=== PATIENT | female | born 1940 | race Caucasian/White ===

== ENCOUNTER 2017-08-11 18:58 | Emergency (ER) | payer OTHER ==
[2017-08-11] MEDS ORDERED: TETANUS & DIPHTHERIA TOX,ADULT 0.5 ML VIAL ONE (20:22)
[2017-08-11] MEDS ORDERED: DERMABOND SKIN ADHESIVE TOP ONE (20:22)
--- NOTE | 2017-08-11 20:25 | RAD REPORT ---
EXAM DESCRIPTION: RAD - Hand Left 3 View - 08/11/2017 8:18 pm CLINICAL HISTORY: PAIN Laceration COMPARISON: No comparisons FINDINGS: Diffuse osteopenia noted. Arthritic changes are present throughout the wrist and hand. No fracture or dislocation. No radiopaque foreign body.
[2017-08-11] MEDS ORDERED: LIDOCAINE 1% MPF 5 ML VIAL ONE (20:39)
--- NOTE | 2017-08-11 21:02 | ER ---
Nurse's Notes [facility] Name: Ronnie Anand Age: 77 yrs Sex: Female : 1940 Arrival Date: 08/11/2017 Time: 19:01 Bed 23 Private MD: Out, [facility] Diagnosis: Laceration without foreign body of left hand Presentation: 08/11 19:08 Presenting complaint: Patient states: pt states that she walked up to screen door to tl3 outside she fell onto the corner of a piece of lattice, skin tear to left dorsal surface of the left hand. Transition of care: patient was not received from another setting of care. Onset of symptoms was August 11, 2017. Risk Assessment: Do you want to hurt yourself or someone else? Patient reports no desire to harm self or others. Initial Sepsis Screen: Does the patient meet any 2 criteria? No. Patient's initial sepsis screen is negative. Does the patient have a suspected source of infection? No. Patient's initial sepsis screen is negative. Care prior to arrival: dressing applied. 19:08 Method Of Arrival: Ambulatory tl3 19:08 Acuity: KE 4 tl3 Triage Assessment: 19:13 General: Appears in no apparent distress. comfortable, well groomed, well developed, tl3 well nourished, Behavior is calm, cooperative, appropriate for age. Pain: Complains of pain in left hand Pain currently is 3 out of 10 on a pain scale. Historical: - Home Meds: 19:13 carvedilol 25 mg oral tab [Active]; tl3 - PSHx: 19:13 Appendectomy; OVARY REMOVED; ; Cholecystectomy; tl3 - Immunization history:: Adult Immunizations not up to date. - Social history:: Smoking status: Patient/guardian denies using tobacco, never smoked. - Ebola Screening: : Patient denies travel to an Ebola-affected area in the 21 days before illness onset. Screenin:27 Abuse screen: Denies threats or abuse. Nutritional screening: No deficits noted. mb3 Tuberculosis screening: No symptoms or risk factors identified. 21:30 Fall Risk None identified. mb3 Assessment: 19:30 General: Appears in no apparent distress. comfortable, Behavior is calm, cooperative, mb3 appropriate for age. Pain: Complains of pain in left hand. Neuro: No deficits noted. Cardiovascular: No deficits noted. Respiratory: No deficits noted. GI: No deficits noted. No signs and/or symptoms were reported involving the gastrointestinal system. Injury Description: Laceration sustained to dorsum of left hand is jagged, 0.5 to 2.5 cm long. Vital Signs: 19:13 BP 103 / 74; Pulse 92; Resp 18; Temp 98.5; Pulse Ox 100% ; Weight 59.42 kg; Height 5 tl3 ft. (152.40 cm); 20:32 BP 102 / 63; Pulse 75; Resp 18; Pulse Ox 94% on R/A; mb3 19:13 Body Mass Index 25.58 (59.42 kg, 152.40 cm) tl3 ED Course: 19:01 Patient arrived in ED. sb2 19:02 Out, of Town is Private Physician. sb2 19:10 Triage completed. tl3 19:13 Arm band placed on right wrist. tl3 19:16 Brittany Patton, KIMBERLY is Primary Nurse. tl3 19:21 Tommy Tripathi NP is PHCP. pm1 19:21 Cr Summers MD is Attending Physician. pm1 19:36 Fly Cruz, KIMBERLY is Primary Nurse. mb3 20:15 X-ray completed. Portable x-ray completed in exam room. Patient tolerated procedure la2 well. 20:16 Hand Left 3 View XRAY In Process Unspecified. EDMS 21:32 Patient has correct armband on for positive identification. mb3 21:32 No provider procedures requiring assistance completed. Patient did not have IV access mb3 during this emergency room visit. Administered Medications: 20:24 Drug: Tetanus-Diphtheria Toxoid Adult 0.5 ml {Clinical Appeals Specialist: [employer]. Exp: mb3 10/25/2019. Lot #: [id number]. } Route: IM; Site: right deltoid; 21:26 Follow up: Response: No adverse reaction mb3 20:40 Drug: Lidocaine (1 %) 5 ml Volume: 5 ml; Route: Infiltration; mb3 21:26 Follow up: Response: No adverse reaction mb3 Outcome: 21:02 Discharge ordered by . pm1 21:26 Discharged to home ambulatory, with family. mb3 21:26 Condition: stable 21:26 Discharge instructions given to patient, Instructed on discharge instructions, follow up and referral plans. medication usage, Demonstrated understanding of instructions, follow-up care, medications, Prescriptions given X 1. 21:33 Patient left the ED. mb3 Signatures: Dispatcher [employer] EDMS Tommy Tripathi, DEANDRE AP[employer] W[employer] pm1 Evie Edouard la2 Martha Bundy sb2 Brittany Patton, RN RN tl3 Fly Cruz RN RN mb3 Corrections: (The following items were deleted from the chart) 21:31 21:27 Tuberculosis screening: Possible symptoms: cough for more than 2 weeks, recent mb3 bloody sputum, Risk factors: immunocompromised, Intervention for positive screen: ED Physician notified, mb3
--- NOTE | 2017-08-11 21:02 | EDPHYS ---
Physician Documentation [facility] Name: Ronnie Anand Age: 77 yrs Sex: Female : 1940 Arrival Date: 08/11/2017 Time: 19:01 Bed 23 Private MD: Out, [facility] ED Physician Cr Summers HPI: 08/11 20:00 This 77 yrs old Female presents to ER via Ambulatory with complaints of Fall pm1 Injury - HAND. 20:00 Onset: The symptoms/episode began/occurred just prior to arrival. Patient was opening pm1 her screen door and accidentally fell with her hand against the edge of the screen door. Patient supported her fall with her left hand and it got caught on an edge resulting in a laceration. Patient without any injury to head. No headache, neck pain, LOC. Historical: - Home Meds: 19:13 carvedilol 25 mg oral tab [Active]; tl3 - PSHx: 19:13 Appendectomy; OVARY REMOVED; ; Cholecystectomy; tl3 - Immunization history:: Adult Immunizations not up to date. - Social history:: Smoking status: Patient/guardian denies using tobacco, never smoked. - Ebola Screening: : Patient denies travel to an Ebola-affected area in the 21 days before illness onset. ROS: 20:00 Constitutional: Negative for fever, chills, and weight loss, Eyes: Negative for injury, pm1 pain, redness, and discharge, ENT: Negative for injury, pain, and discharge, Neck: Negative for injury, pain, and swelling, Cardiovascular: Negative for chest pain, palpitations, and edema, Respiratory: Negative for shortness of breath, cough, wheezing, and pleuritic chest pain, Abdomen/GI: Negative for abdominal pain, nausea, vomiting, diarrhea, and constipation, Back: Negative for injury and pain, MS/Extremity: Negative for injury and deformity. 20:00 Neuro: Negative for headache, weakness, numbness, tingling, and seizure. 20:00 Skin: Positive for laceration(s), of the dorsum of left hand. Exam: 20:00 Constitutional: This is a well developed, well nourished patient who is awake, alert, pm1 and in no acute distress. Head/Face: Normocephalic, atraumatic. Neck: Trachea midline, no thyromegaly or masses palpated, and no cervical lymphadenopathy. Supple, full range of motion without nuchal rigidity, or vertebral point tenderness. No Meningismus. Chest/axilla: Normal chest wall appearance and motion. Nontender with no deformity. No lesions are appreciated. Cardiovascular: Regular rate and rhythm with a normal S1 and S2. No gallops, murmurs, or rubs. Normal PMI, no JVD. No pulse deficits. Respiratory: Lungs have equal breath sounds bilaterally, clear to auscultation and percussion. No rales, rhonchi or wheezes noted. No increased work of breathing, no retractions or nasal flaring. Abdomen/GI: Soft, non-tender, with normal bowel sounds. No distension or tympany. No guarding or rebound. No evidence of tenderness throughout. Back: No spinal tenderness. No costovertebral tenderness. Full range of motion. 20:00 MS/ Extremity: Pulses equal, no cyanosis. Neurovascular intact. Full, normal range of motion. 20:00 Skin: injury, laceration(s), the wound is approximately 3 cm(s), with a depth of 0.5 cm(s), of the dorsum of left hand, that can be described as no foreign body, irregular, Laceration with skin tear, T shaped. 20:00 Neuro: Orientation: is normal, Motor: moves all fours, moves all fingers on left hand, Sensation: is normal, no obvious gross deficits. Vital Signs: 19:13 BP 103 / 74; Pulse 92; Resp 18; Temp 98.5; Pulse Ox 100% ; Weight 59.42 kg; Height 5 tl3 ft. (152.40 cm); 20:32 BP 102 / 63; Pulse 75; Resp 18; Pulse Ox 94% on R/A; mb3 19:13 Body Mass Index 25.58 (59.42 kg, 152.40 cm) tl3 Laceration: 21:00 Wound Repair of 3cm ( 1.2in ) subcutaneous laceration to dorsum of left hand. pm1 Irregularly shaped.. Distal neuro/vascular/tendon intact. Anesthesia: Local anesthetic administered with 2 mls of 1% lidocaine. Wound prep: Extensive cleansing with hibiclenz by me, Wound irrigation with saline by mt, Wound explored extensively, Copious irrigation. Skin closed with 6 5-0 Prolene using simple sutures and sterile technique. Dressed with Neosporin, 4x4's. Patient tolerated well. MDM: 19:27 Patient medically screened. pm1 21:00 Data reviewed: vital signs. Data interpreted: Pulse oximetry: on room air is 100 %. pm1 Interpretation: normal. Counseling: I had a detailed discussion with the patient and/or guardian regarding: the historical points, exam findings, and any diagnostic results supporting the discharge/admit diagnosis, radiology results, the need for outpatient follow up, to return to the emergency department if symptoms worsen or persist or if there are any questions or concerns that arise at home. 08/11 19:32 Order name: Hand Left 3 View XRAY; Complete Time: 21:00 pm1 08/11 19:32 Order name: Dermabond; Complete Time: 20:25 pm1 08/11 21:05 Order name: Prolene, Sutures; Complete Time: 21:16 pm1 08/11 21:05 Order name: Dressing - Wound; Complete Time: 21:16 pm1 08/11 21:05 Order name: Gloves, Sterile; Complete Time: 21:16 pm1 08/11 21:05 Order name: Setup Suture Tray; Complete Time: 21:16 pm1 Administered Medications: 20:24 Drug: Tetanus-Diphtheria Toxoid Adult 0.5 ml {Mucker Operator: [employer]. Exp: mb3 10/25/2019. Lot #: [id number]. } Route: IM; Site: right deltoid; 21:26 Follow up: Response: No adverse reaction 3 20:40 Drug: Lidocaine (1 %) 5 ml Volume: 5 ml; Route: Infiltration; 3 21:26 Follow up: Response: No adverse reaction mb3 Disposition: 08/12 01:20 Co-signature as Attending Physician, Cr Summers MD. pkl Disposition: 08/11/17 21:02 Discharged to Home. Impression: Laceration without foreign body of left hand. - Condition is Stable. - Discharge Instructions: Laceration Care, Adult. - Prescriptions for Keflex 500 mg Oral Capsule - take 1 capsule by ORAL route every 12 hours for 10 days; 20 capsule. - Medication Reconciliation Form, Thank You Letter, Antibiotic Education form. - Follow up: Emergency Department; When: As needed; Reason: Worsening of condition. Follow up: Private Physician; When: 10 - 14 days; Reason: Wound Recheck, Recheck today's complaints, Continuance of care, Staple/Suture removal, Re-evaluation by your physician. - Problem is new. - Symptoms have improved. Signatures: Dispatcher [employer] EDMS Cr Summers MD MD pkTommy Spence, SENIOR PROJECT ARCHITECT SENIOR PROJECT ARCHITECT pm1 Brittany Patton, RN RN tl3 Fly Cruz RN RN mb3 Corrections: (The following items were deleted from the chart) 08/11 21:33 21:02 08/11/2017 21:02 Discharged to Home. Impression: Laceration without foreign body mb3 of left hand. Condition is Stable. Forms are Medication Reconciliation Form, Thank You Letter, Antibiotic Education, Prescription Opioid Use. Follow up: Emergency Department; When: As needed; Reason: Worsening of condition. Follow up: Private Physician; When: 10 - 14 days; Reason: Wound Recheck, Recheck today's complaints, Continuance of care, Staple/Suture removal, Re-evaluation by your physician. Problem is new. Symptoms have improved. pm1
[2017-08-11 21:40] VITALS: TEMP 98.5
[2017-08-11 21:41] VITALS: BP 102/63; O2SAT 94
== END 2017-08-11 21:33 | disposition home or self-care (01) ==
LOC: ER 18:58
PROC: 0JQK0ZZ Repair Left Hand Subcutaneous Tissue and Fascia, Open Approach (ICD-10-PCS; principal; 2017-08-11)
DX: S61.412A Laceration without foreign body of left hand, initial encounter (principal); W18.39XA Other fall on same level, initial encounter; Y93.89 Activity, other specified; Y92.009 Unspecified place in unspecified non-institutional (private) residence as the place of occurrence of the external cause; Z23 Encounter for immunization
CPT/HCPCS: 90714; 99283

== ENCOUNTER 2017-08-21 19:43 | Emergency (ER) | payer OTHER ==
--- OUTSIDE RECORDS SUMMARY | 2017-08-21 19:45 | XMS REPORT | Summary of Care ---
:1940 Author Name HEBER MANCERA M.D. Address Unavailable Unavailable , Care Team Providers Name Role Phone CALDERON Snow, HEBER Unavailable Unavailable ARIANNA EVANGELISTA MD Unavailable Unavailable Unavailable Unavailable Unavailable Functional Status Name Dates Details Functional status health issues are not documented Status: Name Dates Details Cognitive status health issues are not documented Status: Problems Name Dates Details Abnormal EKG (794.31, R94.31) Status: Active Aortic valve sclerosis (424.1, I35.8) Status: Active Coronary artery disease (414.00, I25.10) Status: Active Essential (primary) hypertension (401.9, I10) Status: Active Hyperlipidemia (272.4, E78.5) Status: Active Medications Name Dates Details Synthroid 100 MCG Oral Tablet TAKE 1 TABLET DAILY. Refills: 0 Active Clopidogrel Bisulfate 75 MG Oral Tablet TAKE ONE TABLET BY MOUTH EVERY NIGHT AT BEDTIME Quantity: 90 Refills: 0 HEBER MANCERA M.D. Start : 26-Mar-2016 Active Aspirin 81 MG TABS TAKE 1 TABLET DAILY. Refills: 0 Active Nitrostat 0.4 MG Sublingual Tablet Sublingual DISSOLVE 1 TABLET UNDER THE TONGUE NEEDED FOR CHEST PAIN. Quantity: 1 Refills: 1 HEBER MANCERA M.D. Start : 06-Jun-2011 Active 25 Tablet Sublingual Bottle Isosorbide Mononitrate ER 30 MG Oral Tablet Extended Release 24 Hour TAKE 1 TABLET DAILY. Quantity: 90 Refills: 0 HEBER MANCERA M.D. Start : 12-Jul-2011 Active Carvedilol 12.5 MG Oral Tablet TAKE ONE TABLET BY MOUTH TWICE DAILY Quantity: 180 Refills: 1 HEBER MANCERA M.D. Start : 19-Oct-2011 Active Gabapentin 400 MG Oral Capsule BID Refills: 0 Active Folic Acid 800 MCG Oral Tablet TAKE 1 TABLET DAILY DIRECTED. Refills: 0 Start : 23-Jun-2013 Active Atorvastatin Calcium 80 MG Oral Tablet TAKE 1 TABLET AT BEDTIME. Quantity: 90 Refills: 0 Start : 20-Jun-2015 Active Cyanocobalamin 1000 MCG/ML Injection Solution INJECT 1 ML every 2 weeks Refills: 0 Start : 08-Sep-2015 Active Allergies and Adverse Reactions Name Dates Details No Known Drug Allergies (Allergy) Status: Active Past Medical History Name Dates Details History of Arthritis (V13.4) Status: Resolved History of Coronary Artery Disease (V12.59) Status: Resolved History of essential hypertension (V12.59, Z86.79) Status: Resolved History of Fracture of right hip (820.8, S72.001A) Status: Resolved History of hepatitis C (V12.09, Z86.19) Status: Resolved History of hyperlipidemia (V12.29, Z86.39) Status: Resolved History of hypothyroidism (V12.29, Z86.39) Status: Resolved Procedures Procedure Dates Details History of Tonsillectomy Completed History of Hysterectomy Completed History of Cholecystectomy Completed History of Section Completed History of Hip Surgery Right Completed Immunization Name Dates Details Immunizations not documented Family History Name Dates Details Family history of Diabetes Mellitus (V18.0) Comments: Family History Status: Active Family history of Hypertension (V17.49) Comments: Family History Status: Active Name Dates Details Family history of Stroke Syndrome (V17.1) Status: Active Name Dates Details Family history of Cancer Status: Active Social History Name Dates Details - Status: Name Dates Details Former smoker Vital Signs Date Test Result Details [id number] BP Systolic 136 mm[Hg] Status: Comments: Location: LUE; Position: Sitting BP Diastolic 78 mm[Hg] Status: Comments: Location: LUE; Position: Sitting Height 61 in Status: Weight 131 lb Status: Body Mass Index Calculated 24.75 kg/m2 Status: Body Surface Area Calculated 1.58 m2 Status: Heart Rate 60 /min Status: Comments: Location: L Radial; Quality: Normal Results Date Description Value Details Results not documented Plan of Care Name Dates Details Planned Observations Planned Goals not documented Planned Encounters Appointment; HEBER MANCERA M.D. On: 16-Sep-2017 14:20 Interventions Provided InstructionsPatient Specific Education Given; Done: 19 Jun 2017Plan1. Coronary Artery Disease- c/o L arm pain, more at night ? 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 Hypertension- Well controlled.-Continue current Rx3. Hyperlipidemia- Last LDL was 120 (03/11) . -- > transition to Lipitor 80 mg w/ LDL 56 mg as 4. Hyperthyroid- as TSH 0.02 on 125 mcg , repeat T4/T3 now in WNL- LDL 54 mg/dl as on Lipitor 80 well tolerated5.palpitation and near syncope- no recurrence- 2015 --> SEEK : no events6. Follow up with possible angiogram, patient want to think about it. Extensive discussion about results.High ischemic burden > 40% w/ pharmacologic stress. Declined elective non cardiac clearance due to elevated ischemic burdenSeen today and still wants to wait since limited sx. watchful wait, no active signs of ischemia on current EKG. emergency contact provided.Discussion/SummaryClinical cardiac findings reviewed and discussedEKG reviewed and discussed. Instructions Name Dates Details Instructions not documented Encounters Appointment; HEBER MANCERA M.D. On: 05-Aug-2015 15:00 Encounter Diagnosis: Problem not documented Appointment; HEBER MANCERA M.D. On: 08-Sep-2015 13:00 Encounter Diagnosis: Problem not documented Appointment; HEBER MANCERA M.D. On: 06-Jan-2016 13:45 Encounter Diagnosis: Problem not documented Appointment; HEBER MANCERA M.D. On: 20-Apr-2016 14:30 Encounter Diagnosis: Problem not documented Appointment; HEBER MANCERA M.D. On: 10-Aug-2016 14:40 Encounter Diagnosis: Problem not documented Appointment; HEBER MANCERA M.D. On: 07-Dec-2016 13:40 Encounter Diagnosis: Problem not documented Appointment; HEBER MANCERA M.D. On: 07-Dec-2016 13:45 Encounter Diagnosis: Problem not documented Appointment; HEBER MANCERA M.D. On: 14-Dec-2016 13:10 Encounter Diagnosis: Problem not documented Appointment; HEBER MANCERA M.D. On: 18-Apr-2017 14:00 Encounter Diagnosis: Problem not documented Appointment; HEMANT MOSQUERA On: 30-Apr-2017 13:45 Encounter Diagnosis: Problem not documented Appointment; HEBER MANCERA M.D. On: 22-May-2017 14:10 Encounter Diagnosis: Problem not documented Appointment; HEBER MANCERA M.D. On: 19-Jun-2017 15:10 Encounter Diagnosis: Problem not documented
--- NOTE | 2017-08-21 20:16 | EDPHYS ---
Physician Documentation [facility] Name: Ronnie Anand Age: 77 yrs Sex: Female : 1940 Arrival Date: 08/21/2017 Time: 19:43 Bed 20 Private MD: Out, [facility] ED Physician Yao Joseph HPI: 08/21 20:12 This 77 yrs old Female presents to ER via Unassigned with complaints of jr8 Suture Removal. 20:12 The patient has sutures on the left hand. Previous treatment: The patient was initially jr8 treated 10 day(s) ago. Sutures/denise progress: The patient has no c/o's. The wound is well-healing with no redness, swelling, discharge, or dehiscence reported. The patient has not experienced similar symptoms in the past. The patient has not recently seen a physician. Historical: - Allergies: 20:20 No Known Allergies; ea - Home Meds: 20:20 carvedilol 25 mg Oral tab [Active]; ea - PSHx: 20:20 Appendectomy; OVARY REMOVED; ; Cholecystectomy; ea - Immunization history:: Adult Immunizations up to date. - Social history:: Smoking status: unknown. - Ebola Screening: : No symptoms or risks identified at this time. ROS: 20:12 Eyes: Negative for injury, pain, redness, and discharge, ENT: Negative for injury, jr8 pain, and discharge, Neck: Negative for injury, pain, and swelling, Cardiovascular: Negative for chest pain, palpitations, and edema, Respiratory: Negative for shortness of breath, cough, wheezing, and pleuritic chest pain, Abdomen/GI: Negative for abdominal pain, nausea, vomiting, diarrhea, and constipation, Back: Negative for injury and pain, MS/Extremity: Negative for injury and deformity, Neuro: Negative for headache, weakness, numbness, tingling, and seizure. Exam: 20:12 Cardiovascular: Regular rate and rhythm with a normal S1 and S2. No gallops, murmurs, jr8 or rubs. Normal PMI, no JVD. No pulse deficits. Respiratory: Lungs have equal breath sounds bilaterally, clear to auscultation and percussion. No rales, rhonchi or wheezes noted. No increased work of breathing, no retractions or nasal flaring. MS/ Extremity: Pulses equal, no cyanosis. Neurovascular intact. Full, normal range of motion. Neuro: Awake and alert, GCS 15, oriented to person, place, time, and situation. Cranial nerves II-XII grossly intact. Motor strength 5/5 in all extremities. Sensory grossly intact. Cerebellar exam normal. Normal gait. 20:12 Skin: Wound recheck: Suture laceration closure: the wound is healing well, the edges are well approximated, no evidence of dehiscence, no drainage, mild erythema. Vital Signs: 20:17 BP 118 / 92; Pulse 72; Resp 18 S; Temp 98(O); Pulse Ox 99% on R/A; Weight 72.57 kg; ea Height 5 ft. 2 in. (157.48 cm); Pain 0/10; 20:17 Body Mass Index 29.26 (72.57 kg, 157.48 cm) ea Procedures: 20:12 Suture/Staple removal: Removed 6 sutures, from left hand, site appears well healed, jr8 reddened, dressed with band aid, Neosporin, Patient tolerated well. MDM: 20:09 Patient medically screened. jr8 20:12 Data reviewed: vital signs, nurses notes, and as a result, I will discharge patient. jr8 Data interpreted: Pulse oximetry: on room air is 100 %. Interpretation: normal. Counseling: I had a detailed discussion with the patient and/or guardian regarding: the historical points, exam findings, and any diagnostic results supporting the discharge/admit diagnosis, the need for outpatient follow up, a family practitioner, to return to the emergency department if symptoms worsen or persist or if there are any questions or concerns that arise at home. ED course: Discussed with patient to make sure she finishes her antibiotics. If the redness worsens to come back for further evaluation . Administered Medications: No medications were administered Disposition: 08/22 06:46 Co-signature as Attending Physician, Yao Joseph MD. Disposition: 08/21/17 20:15 Discharged to Home. Impression: Encounter for removal of sutures. - Condition is Stable. - Discharge Instructions: Suture Removal, Care After. - Medication Reconciliation Form, Thank You Letter, Antibiotic Education, Prescription Opioid Use form. - Follow up: Private Physician; When: As needed; Reason: Wound Recheck, Recheck today's complaints, Continuance of care, Re-evaluation by your physician. - Problem is new. - Symptoms have improved. Signatures: Lalito Velazquez PA PA jr8 Yvette Albrecht RN RN Yao Sloan MD MD gs Davies, Jonathon, RN RN jd3 Corrections: (The following items were deleted from the chart) 08/21 20:28 20:15 08/21/2017 20:15 Discharged to Home. Impression: Encounter for removal of jd3 sutures. Condition is Stable. Forms are Medication Reconciliation Form, Thank You Letter, Antibiotic Education, Prescription Opioid Use. Follow up: Private Physician; When: As needed; Reason: Wound Recheck, Recheck today's complaints, Continuance of care, Re-evaluation by your physician. Problem is new. Symptoms have improved. jr8
--- NOTE | 2017-08-21 20:29 | ER ---
Nurse's Notes [facility] Name: Ronnie Anand Age: 77 yrs Sex: Female : 1940 Arrival Date: 08/21/2017 Time: 19:43 Bed 20 Private MD: Out, [facility] Diagnosis: Encounter for removal of sutures Presentation: 08/21 20:15 Presenting complaint: Patient states: She had a fall about a week and a half ago and ea was here to get her stitcher removed. Transition of care: patient was not received from another setting of care. Onset of symptoms was August 21, 2017. Risk Assessment: Do you want to hurt yourself or someone else? Patient reports no desire to harm self or others. Initial Sepsis Screen: Does the patient meet any 2 criteria? No. Patient's initial sepsis screen is negative. Does the patient have a suspected source of infection? No. Patient's initial sepsis screen is negative. Care prior to arrival: None. 20:15 Method Of Arrival: Ambulatory ea 20:15 Acuity: KE 5 ea Triage Assessment: 20:17 General: Appears in no apparent distress. Behavior is calm, cooperative, appropriate ea for age. Pain: Denies pain. Historical: - Allergies: 20:20 No Known Allergies; ea - Home Meds: 20:20 carvedilol 25 mg Oral tab [Active]; ea - PSHx: 20:20 Appendectomy; OVARY REMOVED; ; Cholecystectomy; ea - Immunization history:: Adult Immunizations up to date. - Social history:: Smoking status: unknown. - Ebola Screening: : No symptoms or risks identified at this time. Screenin:18 Abuse screen: Denies threats or abuse. Nutritional screening: No deficits noted. ea Tuberculosis screening: No symptoms or risk factors identified. Fall Risk None identified. Assessment: 20:18 General: Appears in no apparent distress. Behavior is calm, cooperative, appropriate jd3 for age. Pain: Denies pain. Neuro: Level of Consciousness is awake, alert, obeys commands, Oriented to person, place, time, situation, Appropriate for age. Cardiovascular: Denies chest pain, Capillary refill < 3 seconds Patient's skin is warm and dry. Respiratory: Airway is patent Respiratory effort is even, unlabored, Respiratory pattern is regular, symmetrical, Denies shortness of breath. GI: No signs and/or symptoms were reported involving the gastrointestinal system. : No signs and/or symptoms were reported regarding the genitourinary system. EENT: No signs and/or symptoms were reported regarding the EENT system. Derm: Skin is intact, Skin is dry, Skin is normal, Skin temperature is warm Wound noted left hand Wound is suture removal on top of left hand. Musculoskeletal: Circulation, motion, and sensation intact. Range of motion: intact in all extremities. Vital Signs: 20:17 BP 118 / 92; Pulse 72; Resp 18 S; Temp 98(O); Pulse Ox 99% on R/A; Weight 72.57 kg; ea Height 5 ft. 2 in. (157.48 cm); Pain 0/10; 20:17 Body Mass Index 29.26 (72.57 kg, 157.48 cm) ea ED Course: 19:43 Patient arrived in ED. ds1 19:44 Out, [facility] is Private Physician. ds1 20:09 [facility] Velazquez [facility] is [facility]. jr8 20:09 Yao Joseph MD is Attending Physician. jr8 20:17 Triage completed. ea 20:18 Carl Ng, KIMBERLY is Primary Nurse. jd3 20:18 Patient has correct armband on for positive identification. Bed in low position. Call ea light in reach. 20:19 Arm band placed on Patient placed in an exam room, on a stretcher. ea 20:27 suture removal. Patient did not have IV access during this emergency room visit. jd3 Administered Medications: No medications were administered Outcome: 20:15 Discharge ordered by . jr8 20:27 Discharged to home ambulatory, with family. jd3 20:27 Condition: stable 20:27 Discharge instructions given to patient, family, Instructed on discharge instructions, follow up and referral plans. Demonstrated understanding of instructions, follow-up care. 20:28 Patient left the ED. jd3 Signatures: Maritza Christianson ds1 Lalito Velazquez PA PA jrYvette Fuller RN RN ea Davies, Jonathon, RN RN jwilly Corrections: (The following items were deleted from the chart) 20:28 20:27 No provider procedures requiring assistance completed. jd3 jd3
[2017-08-21 20:34] VITALS: BP 118/92; TEMP 98; O2SAT 99
== END 2017-08-21 20:28 | disposition home or self-care (01) ==
LOC: ER 19:43
DX: S61.412D Laceration without foreign body of left hand, subsequent encounter (principal); Z48.02 Encounter for removal of sutures
CPT/HCPCS: 99281

== ENCOUNTER 2017-10-11 16:16 | Emergency (ER) | payer OTHER ==
--- OUTSIDE RECORDS SUMMARY | 2017-10-11 16:18 | XMS REPORT | Summary of Care ---
[...] NIGHT AT BEDTIME Quantity: 90 Refills: 0 HBEER MANCERA M.D. Start : 26-Mar-2016 Active Aspirin [...] smoker Vital Signs Date Test Result Details [id number] BP Systolic 129 mm[Hg] Status: BP Diastolic 70 mm[Hg] Status: Height 61 in Status: Weight 127 lb Status: Body Mass Index Calculated 24 kg/m2 Status: Body Surface Area Calculated 1.56 m2 Status: Heart Rate 55 /min Status: Results Date Description Value Details Results not documented Plan of Care Name Dates Details Planned Observations Planned Goals not documented Planned Encounters Appointment; HEBER MANCERA M.D. On: 20-Jan-2018 14:00 Interventions Provided Plan1. Coronary Artery Disease- c/o L arm pain, more at night ? CAD/angina equivalent- currently subsided- Cath in 2011 with LAD [employer] but per report extensive R->L collaterals, and non occlusive plaques in LCX/RCA.- declined PCI for [employer] LAD- Continue GDMT: Carvedilol 12.5 mg BID, Plavix 75 mg daily, ASA 81 mg QD, Livalo 4mg HS and Isosorbide Mononitrate 30 mg daily- Echo w/ preserved EF and no WMA, still R wave in EKG (08/2017)2. Hypertension- Well controlled.-Continue current Rx3. Hyperlipidemia- Last LDL was 120 (03/11). -- & gt; transition to Lipitor 80 mg w/ LDL 56 mg as 4. Hyperthyroid- as TSH 0.02 on 125 mcg , repeat T4/T3 now in WNL- LDL 54 mg/dl as on Lipitor 80 well tolerated5.palpitation and near syncope- no recurrence- 2015 --> SEEK : no events6. Follow up q4 mos. Extensive discussion about results.High ischemic burden >40% w/ pharmacologic stress. Declined elective non cardiac clearance due to elevated ischemic burdenSeen today and still wants to wait since no sx.- watchful wait, no active signs of ischemia on current EKG. emergency contact provided.Discussion/SummaryClinical cardiac findings reviewed and discussedEKG reviewed and discussed. Instructions Name Dates Details Instructions not documented Encounters Appointment; HEBER MANCERA M.D. On: 06-Jan-2016 13:45 [...] 19-Jun-2017 15:10 Encounter Diagnosis: Problem not documented Appointment; HEBER MANCERA M.D. On: 16-Sep-2017 15:10 Encounter Diagnosis: Problem not documented
[2017-10-11] MEDS ORDERED: ONDANSETRON 4 MG/2 ML VIAL ONE (16:42)
[2017-10-11] MEDS ORDERED: FENTANYL CITR 100 MCG/2 ML ONE (16:42)
[2017-10-11] MEDS ORDERED: TETANUS & DIPHTHERIA TOX,ADULT 0.5 ML VIAL ONE (16:43)
[2017-10-11] MEDS ORDERED: NA CHLORIDE 0.9% 1,000 ML ONE (16:54)
[2017-10-11 17:05] LABS: Absolute Lymphocytes (CBC) 2.4 K/uL (0.7-4.9); Absolute Monocytes 0.7 K/uL (0.1-1.3); Absolute Neutrophil 6.7 K/uL (1.8-8.0); Basophils % 0.4 % (0-1.3); Eosinophils % 1.9 % (0-4.4); Lymphocytes % 23.6 % (15.3-44.8); MCV 92.4 fL (80-100); MPV 9.6 fL (7.6-11.3); RBC Red Blood Cell Count 4.44 M/uL (3.86-4.86)
[2017-10-11 17:10] LABS: Protime INR 1.09
--- NOTE | 2017-10-11 17:10 | EKG ---
Test Date: 2017-10-11 Test Time: 16:49:45 Decision Science Analyst: ROB MEASUREMENT RESULTS: Intervals: Rate: 78 LA: 152 QRSD: 84 QT: 382 QTc: 435 [place]: P: 68 LA: 152 QRS: -20 T: 70 INTERPRETIVE STATEMENTS: Normal sinus rhythm Low voltage QRS Septal infarct, age undetermined Abnormal ECG Compared to ECG 05/19/2013 07:26:25 Myocardial infarct finding now present Left anterior fascicular block no longer present Electronically Signed On 10-11-17 17:10:11 CDT by Theron Colin
[2017-10-11 17:16] LABS: Potassium 4.4 mmol/L (3.5-5.1)
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
[2017-10-11] MEDS ORDERED: CEFAZOLIN/SWI 1gm 1 GM/10 ML SYR ONE (19:15)
[2017-10-11] MEDS ORDERED: LORazepam 2 MG/ML VIAL ONE (19:53)
[2017-10-11 22:48] VITALS: TEMP 97.6
[2017-10-11 22:54] VITALS: BP 145/81; O2SAT 100
== END 2017-10-11 21:49 | disposition short-term general hospital (02) ==
LOC: ER 16:16
PROC: 2W3QX1Z Immobilization of Right Lower Leg using Splint (ICD-10-PCS; principal; 2017-10-11)
DX: S62.327A Displaced fracture of shaft of fifth metacarpal bone, left hand, initial encounter for closed fracture (principal); S82.891A Other fracture of right lower leg, initial encounter for closed fracture; V59.40XA Driver of pick-up truck or van injured in collision with unspecified motor vehicles in traffic accident, initial encounter; R56.9 Unspecified convulsions; I10 Essential (primary) hypertension
CPT/HCPCS: 29515; 36415; 70450; 71045; 71260; 72125; 72170; 73130; 73552 ×2; 73590 ×2; 73630; 74177; 80048; 84484; 85025; 85610; 85730; 86850; 86900; 86901; 90714; 93005; J0690; J2405; J3010; J7030; Q9967; 99285

== ENCOUNTER 2019-10-14 07:21 | Emergency (ER) | payer OTHER ==
--- OUTSIDE RECORDS SUMMARY | 2019-10-14 07:23 | XMS REPORT | Continuity of Care Document ---
:1940 Author Organization [employer] Care Team Providers Name Role Phone [employer] Unavailable Un available Problems Problem Status Onset Classification Date Comments Sourc e Date Reported Coronary Artery Active 03/16/2013 [facility] Hyperlipidemia Active 03/16/2013 [facility] Hypertension Active 03/16/2013 [facility] Aortic Active 09/18/2012 [facility] Mitral Active 09/18/2012 [facility] Aortic Sclerosis Active 03/16/2013 [facility] Medications Medication Details Route Status Patient Ordering Order Source Instructions Provider Date Carvedilol ; Start Active [facility] 6.25 MG Oral Date: 012 [facility] Tablet 10/19/2011 ; End Date: (Active) Carvedilol ; Start Active [facility] 12.5 MG Oral Date: 012 [facility] Tablet 10/19/2011 ; End Date: (Active) Isosorbide ; Start Active [facility] Mononitrate ER Date: 012 [facility] 30 MG Oral 07/12/2011 Tablet ; End Extended Date: Release 24 Hour (Active) Nitrostat 0.4 ; Start Active [facility] MG Sublingual Date: 012 [facility] Tablet 06/06/2011 Sublingual ; End Date: (Active) Livalo 4 MG ; Start Active [facility] Oral Tablet Date: 012 [facility] 06/06/2011 (Active) Livalo 4 MG ; Start Active [facility] Oral Tablet Date: 012 [facility] 06/06/2011 (Active) Lisinopril 2.5 ; Start Inactive [facility] MG Oral Tablet Date: 900 [facility] ; End Date: (Active) Clopidogrel ; Start Inactive [facility] Bisulfate 75 Date: 900 [facility] MG Oral Tablet ; End Date: (Active) Synthroid 125 (Active) Active [facility] MCG Oral [facility] Tablet Aspirin 81 MG (Active) Active [facility] Oral Tablet [facility] Selenium TABS (Active) Active [facility] Clopidogrel (Active) Active [facility] Bisulfate 75 [facility] MG Oral Tablet Lisinopril 2.5 (Active) Active [facility] MG Oral Tablet [facility] Gabapentin 400 (Active) Active [facility] MG Oral [facility] Capsule Allergies, Adverse Reactions, Alerts Substance Category Reaction Severity Reaction Status Date Comments S ource type Reported No Known drug drug Active [facility] Drug allergy allergy [facility] Allergies Immunizations No Data Provided for This Section Results No Data Provided for This Section Pathology Reports No Data Provided for This Section Diagnostic Reports No Data Provided for This Section Consultation Notes No Data Provided for This Section Discharge Summaries No Data Provided for This Section History and Physicals No Data Provided for This Section Vital Signs No Data Provided for This Section Encounters Location Location Encounter Encounter Reason Attending ADM [place] Stat Source Details Type Number For Provider Date Date Visit AUDIT [id number] 02/21 /2011 [facility] AUDIT [id number] 03/18 /2012 [facility] AUDIT [id number] 03/24 /2012 [facility] EST, [id number] 06/27 03/25 [facility] Provider: BALTAZAR Cortes, Status: Pen, Time: 1:45 PM AUDIT [id number] 06/27 /2012 [facility] AUDIT [id number] 08/07 /2012 [facility] AUDIT [id number] 09/02 /2012 [facility] AUDIT [id number] 09/18 /2012 [facility] EST, [id number] 11/06 09/18 [facility] Provider: BALTAZAR Cortes, Status: Pen, Time: 2:15 PM AUDIT [id number] 11/06 /2012 [facility] AUDIT [id number] 02/03 /2012 [facility] EST, [id number] 03/12 02/03 [facility] Provider: BALTAZAR Cortes, Status: Pen, Time: 1:30 PM AUDIT [id number] 03/12 /2013 [facility] AUDIT [id number] 03/16 /2013 [facility] EST, [id number] 07/09 03/16 [facility] Provider: BALTAZAR Cortes, Status: Pen, Time: 2:15 PM Procedures No Data Provided for This Section Assessment and Plan No Data Provided for This Section Plan of Care Plan of Care Date Source ECG-12 Lead 06/27/2012 03/16/2013 [facility] Routine ECG-12 Lead 06/27/2012 03/12/2013 [facility] Routine ECG-12 Lead 06/27/2012 02/03/2013 [facility] Routine ECG-12 Lead 06/27/2012 11/06/2012 [facility] Routine ECG-12 Lead 06/27/2012 09/18/2012 [facility] Routine ECG-12 Lead 06/27/2012 09/03/2012 [facility] Routine ECG-12 Lead 06/27/2012 08/07/2012 [facility] Routine ECG-12 Lead 06/27/2012 06/28/2012 [facility] Routine 2D Echo complete, with 02/22/2012 [facility] Doppler 07/12/2011 Routine[L] Lipid Panel w/ Chol/HDL Ratio 10/19/2011 Routine[H] CMP 10/19/2011 Routine Social History Social History Date Source Activities Of Daily Living 03/16/2013 [facility] (Active) Caffeine Use Comments: 2 cups of coffee (Active) Former Smoker Comments: quit 16 yrs ago (V15.82); (Active) Family History Value Date Source Sororal history of Cancer 03/16/2013 [facility] (Active) Family history of Diabetes Mellitus (V18.0); (Active) Family history of Hypertension (V17.49); (Active) Maternal history of Stroke Syndrome (V17.1); (Active) Sororal history of Cancer 03/12/2013 [facility] (Active) Family history of Diabetes Mellitus (V18.0); (Active) Family history of Hypertension (V17.49); (Active) Maternal history of Stroke Syndrome (V17.1); (Active) Sororal history of Cancer 02/03/2013 [facility] (Active) Family history of Diabetes Mellitus (V18.0); (Active) Family history of Hypertension (V17.49); (Active) Maternal history of Stroke Syndrome (V17.1); (Active) Sororal history of Cancer 11/06/2012 [facility] (Active) Family history of Diabetes Mellitus (V18.0); (Active) Family history of Hypertension (V17.49); (Active) Maternal history of Stroke Syndrome (V17.1); (Active) Maternal history of Stroke 09/18/2012 [facility] Syndrome (V17.1); (Active) Family history of Hypertension (V17.49); (Active) Family history of Diabetes Mellitus (V18.0); (Active) Sororal history of Cancer (Active) Maternal history of Stroke 09/03/2012 [facility] Syndrome (V17.1); (Active) Family history of Hypertension (V17.49); (Active) Family history of Diabetes Mellitus (V18.0); (Active) Sororal history of Cancer (Active) Maternal history of Stroke 08/07/2012 [facility] Syndrome (V17.1); (Active) Family history of Hypertension (V17.49); (Active) Family history of Diabetes Mellitus (V18.0); (Active) Sororal history of Cancer (Active) Sororal history of Cancer 06/28/2012 [facility] (Active) Family history of Diabetes Mellitus (V18.0); (Active) Family history of Hypertension (V17.49); (Active) Maternal history of Stroke Syndrome (V17.1); (Active) Sororal history of Cancer 03/25/2012 [facility] (Active) Family history of Diabetes Mellitus (V18.0); (Active) Family history of Hypertension (V17.49); (Active) Maternal history of Stroke Syndrome (V17.1); (Active) Sororal history of Cancer 03/18/2012 [facility] (Active) Family history of Diabetes Mellitus (V18.0); (Active) Family history of Hypertension (V17.49); (Active) Maternal history of Stroke Syndrome (V17.1); (Active) Sororal history of Cancer 02/22/2012 [facility] (Active) Family history of Diabetes Mellitus (V18.0); (Active) Family history of Hypertension (V17.49); (Active) Maternal history of Stroke Syndrome (V17.1); (Active) Advance Directives Order Name Results Value Date Source Advance Directives Advance Directives No Advance 03/16/2013 [facility] Directives available. Advance Directives Advance Directives No Advance 03/12/2013 [facility] Directives available. Advance Directives Advance Directives No Advance 02/03/2013 [facility] Directives available. Advance Directives Advance Directives No Advance 11/06/2012 [facility] Directives available. Advance Directives Advance Directives No Advance 09/18/2012 [facility] Directives available. Advance Directives Advance Directives No Advance 09/03/2012 [facility] Directives available. Advance Directives Advance Directives No Advance 08/07/2012 [facility] Directives available. Advance Directives Advance Directives No Advance 06/28/2012 [facility] Directives available. Advance Directives Advance Directives No Advance 03/25/2012 [facility] Directives available. Advance Directives Advance Directives No Advance 03/18/2012 [facility] Directives available. Advance Directives Advance Directives No Advance 02/22/2012 [facility] Directives available. Functional Status No Data Provided for This Section
--- OUTSIDE RECORDS SUMMARY | 2019-10-14 07:23 | XMS REPORT | Continuity of Care Document ---
:1940 Author Organization [facility] t Address [address] [place] [address] Care Team Providers Name Role Phone MARILEE Attending Clinician Unavailable CALDERON Attending Clinician Unavailable STEVEN Attending Clinician Unavailable RENETTA Attending Clinician Unavailable SE Attending Clinician Unavailable Problems Condition Condition Condition Status Onset Resolution Last Treating Co mments Source Name Details Category Date Date Treatment Clinician Date History of History of Problem Resolve Univers Arthritis Arthritis d ity of [place] Physici ans History of History of Problem Resolve Univers Coronary Coronary d ity of Artery Artery [place] Disease Disease Physici ans History of History of Problem Resolve Univers essential essential d it[place] of hypertens[place] Physici ans History of History of Problem Resolve Univers Fracture Fracture d ity of of right of right [place] hip hip Physici ans History of History of Problem Resolve Univers hepatitis hepatitis d ity of C C [place] Physici ans History of History of Problem Resolve Univers hyperlipid hyperlipid d it y of emia emia [place] Physici ans Abnormal Abnormal Problem Active Unive rs EKG EKG ity of [place] Physici ans Aortic Aortic Problem Active Univers valve valve ity of sclerosis [place] Closed Closed Problem Active Univers nondisplac nondisplac it y of ed ed [place] fracture fracture Physic i of lateral of lateral an s malleolus malleolus of right of right fibula, fibula, initial initial encounter encounter Hypothyroi Hypothyroi Problem Active U nivers dism dism ity of [place] Physici ans Chronic Chronic Problem Active Univers stable stable ity of angina angina [place] [facility] ans Chronic Chronic Problem Active 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 [place] of of Physici coronary coronary ans artery artery Coronary Coronary Problem Active Unive rs artery artery ity of disease disease [place] Physici ans Dyslipidem Dyslipidem Problem Active U nivers ia ia ity of [place] Physici ans Essential Essential Problem Active Uni vers (primary) (primary) ity of hypertensi [place] ans Coronary Problem Active 2013-03-16 Mem oria Artery 19:01:14 l Disease Coronary Carlita nn Artery Disease Active 4 [facility] Hyperlipid Problem Active 2013-03-16 M emoria emia 19:01:14 l [place] Hyperlipid emia Active 4 [facility] Hypertensi Problem Active 2013-03-16 M emoria on 19:01:14 l [place] Hypertensi on Active 03/16/2013 [facility] Aortic Problem Active 2012-09-18 Memor ia Regurgitat 10:03:04 l ion Aortic [place] Regurgitat ion Active 3 [facility] Mitral Problem Active 2012-09-18 Memor ia Regurgitat 10:03:04 l ion Mitral [place] Regurgitat ion Active 3 [facility] Aortic Problem Active 2013-03-16 Memor ia Sclerosis 19:01:14 l Aortic Jared Sclerosis Active 4 [facility] Allergies, Adverse Reactions, Alerts Allergy Allergy Status Severity Reaction(s) Onset Inactive Treating Comm ents Source Name Type Date Date Clinician No Known No Known Active Memori a Drug Drug l Allergie Allergie Quentin n s s Family History Family Member Diagnosis Comments Start Date Stop Date Source Unknown Family Family history of Family History [place] of [facility] Diabetes Mellitus [place] P hysicians Unknown Family Family history of Family History [facility] Hypertension [place] Physic ians Unknown Family Family History 2012-02-22 2012-02-22 Memori al Jared Member 20:20:19 20:20:19 Mother Family history of Univers ity of Stroke Syndrome [place] Phy sicians Sister Family history of Univers ity of Cancer [place] Physicia ns Social History Social Habit Start Date Stop Date Quantity Comments Source Social History 2013-03-16 2013-03-16 Floyd guevara 19:01:14 19:01:14 Smoking Status Start Date Stop Date Source Ex-smoker (finding) [facility] Medications Ordered Filled Start Stop Current Ordering Indication Dosage Frequency Signature Comments Components Source Medication Medication Date Date Medication? Clinician (SIG) Name Name Calcium 600 Calcium 600 2017- Yes 1 QD TAKE 1 Univers MG Oral MG Oral 1-26 TABLET ity of Tablet Tablet 00:00: DAILY. [place] 00 Physici ans Vitamin D3 Vitamin D3 2017- Yes TAKE Univers 25 MCG 25 MCG 1-26 DIRECTED. ity of (1000 UT) (1000 UT) 00:00: [place] as Oral Oral 00 Physici Capsule Capsule ans Clopidogrel Clopidogrel 2016- Yes BENNET TAKE ONE Univers Bisulfate Bisulfate 1-30 MARILEE TABLET BY ity of 75 MG Oral 75 MG Oral 00:00: M.D. MOUTH [place] Tablet Tablet 00 EVERY Physici NIGHT AT ans BEDTIME Cyanocobala Cyanocobala 2015-0 Yes 1 INJECT 1 Univers min 1000 min 1000 7-14 ML every it y of MCG/ML MCG/ML 00:00: 2 weeks [place] Injection Injection 00 Physi ci Solution Solution ans Atorvastati Atorvastati Yes 1 TAKE 1 Univers n Calcium n Calcium 4-25 TABLET AT ity of 80 MG Oral 80 MG Oral 00:00: BEDTIME. [place] Tablet Tablet 00 Physici ans Folic Acid Folic Acid Yes QD TAKE 1 Univers 800 MCG 800 MCG 4-29 TABLET ity of Oral Tablet Oral Tablet 00:00: DAILY [place] 00 DIRECTED. Physici ans Synthroid 2013-0 Yes (Active) Mem oria 125 MCG 1-20 l Oral Tablet 19:01: Quentin n 14 Aspirin 81 2013-0 Yes (Active) Me moria MG Oral 1-20 l Tablet 19:01: Jared 14 Gabapentin 2013-0 Yes (Active) Me moria 400 MG Oral 1-20 l Capsule 19:01: Jared 14 Selenium 2012-0 Yes (Active) Enoch farnaz TABS 7-25 l 10:03: Jared 04 Clopidogrel 2012-0 Yes (Active) M emoria Bisulfate 7-10 l 75 MG Oral 03:18: [place] Tablet 50 Lisinopril 2012-0 Yes (Active) Me moria 2.5 MG Oral 1-29 l Tablet 00:50: [place] 22 Carvedilol 2011-0 Yes ; Start Enoch farnaz 6.25 MG 8-24 Date: l Oral Tablet 05:00: 10/19/2011 Jared 00 ; End Date: (Active) Carvedilol 2011-0 Yes ; Start Enoch farnaz 12.5 MG 8-24 Date: l Oral Tablet 05:00: 10/19/2011 [place] 00 ; End Date: (Active) Carvedilol Carvedilol 2011- Yes BENNET Q0.5D TAKE 1 Univers 12.5 MG 12.5 MG 8-24 MARILEE TABLET BY it y of Oral Tablet Oral Tablet 00:00: M.D. MOUTH [place] 00 TWICE Physici DAILY ans Isosorbide 2011-0 Yes ; Start Enoch farnaz Mononitrate 5-17 Date: l ER 30 MG 05:00: 07/12/2011 Her green Oral Tablet 00 ; End Extended Date: Release 24 Hour (Active) Isosorbide Isosorbide 2011- Yes BENNET QD TAKE 1 Univers Mononitrate Mononitrate 5-17 MARILEE TABLET BY ity of ER 60 MG ER 60 MG 00:00: M.D. MOUTH ONCE [place] Oral Tablet Oral Tablet 00 DAILY Physici Extended Extended ans Release 24 Release 24 Hour Hour Nitrostat 2011- Yes ; Start Memor ia 0.4 MG 06-05 Date: l Sublingual 05:00: 06/06/2011 H ermann Tablet 00 ; End Sublingual Date: (Active) Livalo 4 MG 2011-0 Yes ; Start Mem oria Oral Tablet 06-05 Date: l 05:00: 06/06/2011 [place] 00 (Active) Livalo 4 MG 2011-0 Yes ; Start Mem oria Oral Tablet 06-05 Date: l 05:00: 06/06/2011 [place] 00 (Active) Nitroglycer Nitroglycer 2011- Yes BENNET PLACE ONE Univers in 0.4 MG in 0.4 MG 4-11 MARILEE TABLET i ty of Sublingual Sublingual 00:00: M.D. UNDER [place] Tablet Tablet 00 TONGUE Physic i Sublingual Sublingual NEEDED FOR ans CHEST PAIN EVERY 5 MINUTES. IF NOT RELIEVED IN 5 MINUTES AFTER 1ST DOSE, CALL 911 Lisinopril 1900-0 Yes ; Start Enoch farnaz 2.5 MG Oral 02-25 Date: l Tablet 06:00: Carlita nn 00 ; End Date: (Active) Clopidogrel 1900-0 Yes ; Start Mem oria Bisulfate 02-25 Date: l 75 MG Oral 06:00: H ermann Tablet 00 ; End Date: (Active) Gabapentin Gabapentin Yes BID Uni vers 400 MG Oral 400 MG Oral i ty of Capsule Capsule Abril Physici ans Synthroid Synthroid Yes 1 QD TAKE 1 Uni vers 100 MCG 100 MCG TABLET ity of Oral Tablet Oral Tablet DAILY. Abril Gonzalez ans Vital Signs Vital Name Observation Time Observation Value Comments Source Systolic blood 2019-03-24 140 mm[Hg] Location: [facility] 15:48:00 Position: [place] Physician s Sitting Diastolic blood 2019-03-24 82 mm[Hg] Location: [facility] 15:48:00 Position: [place] Physician s Sitting Body height 2019-03-24 61 [in_us] [facility] 15:48:00 [place] Physician s Weight 2019-03-24 124 [lb_av] [facility] 15:48:00 [place] Physician s Body mass index 2019-03-24 23.43 kg/m2 University o f (BMI) [Ratio] [facility]:48[facility] 2019-03-24 60 /min [facility] 15:48:00 [place] Physician s BP Systolic 2019-01-14 136 mm[Hg] [facility]: [facility] 15:47:00 Position: [place] Physician s Sitting BP Diastolic 2019-01-14 75 mm[Hg] Location: [facility] 15:47:00 Position: [place] Physician s Sitting Height 2019-01-14 61 [in_us] [facility] 15:47:00 [place] Physician s Weight 2019-01-14 121 [lb_av] [facility] 15:47:00 [place] Physician s Body Mass Index 2019-01-14 22.86 kg/m2 University o f Calculated 15:47:00 [place] Physician s Heart Rate 2019-01-14 62 /min [facility] 15:47:00 [place] Physician s BP Systolic 2018-12-25 157 mm[Hg] [facility]: [facility] 15:53:00 Position: [place] Physician s Sitting BP Diastolic 2018-12-25 74 mm[Hg] Location: [facility] 15:53:00 Position: [place] Physician s Sitting Height 2018-12-25 61 [in_us] [facility] 15:53:00 [place] Physician s Weight 2018-12-25 119 [lb_av] [facility] 15:53:00 [place] Physician s Body Mass Index 2018-12-25 22.48 kg/m2 University o f Calculated 15:53:00 [place] Physician s Heart Rate 2018-12-25 60 /min Location: [facility] 15:53:00 Radial; [place] Physician s BP Systolic 2018-09-25 140 mm[Hg] Location: [facility] 15:59:00 Position: [place] Physician s Sitting BP Diastolic 2018-09-25 90 mm[Hg] Location: [facility]; [facility] 15:59:00 Position: [place] Physician s Sitting Heart Rate 2018-09-25 61 /min [facility] 15:59:00 [place] Physician s Height 2018-09-25 61 [in_us] University 15:59:00 [place] Physician s Weight 2018-09-25 121 [lb_av] University 15:59:00 [place] Physician s Body Mass Index 2018-09-25 22.86 kg/m2 University o f Calculated 15:59:00 [place] Physician s BP Systolic 2018-05-22 110 mm[Hg] Location: [facility] 14:23:00 Position: [place] Physician s Sitting BP Diastolic 2018-05-22 60 mm[Hg] Location: [facility] 14:23:00 Position: [place] Physician s Sitting Height 2018-05-22 61 [in_us] University 14:23:00 [place] Physician s Weight 2018-05-22 123 [lb_av] University 14:23:00 [place] Physician s Body Mass Index 2018-05-22 23.24 kg/m2 University o f Calculated 14:23:00 [place] Physician s Heart Rate 2018-05-22 72 /min University 14:23:00 [place] Physician s BP Systolic 2018-01-20 135 mm[Hg] University 15:16:00 [place] Physician s BP Diastolic 2018-01-20 78 mm[Hg] University of 15:16:00 [place] Physician s Height 2018-01-20 61 [in_us] University of 15:16:00 [place] Physician s Weight 2018-01-20 122 [lb_av] University of 15:16:00 [place] Physician s Body Mass Index 2018-01-20 23.05 kg/m2 University o f Calculated 15:16:00 [place] Physician s Heart Rate 2018-01-20 70 /min University of 15:16:00 [place] Physician s BP Systolic 2017-09-16 129 mm[Hg] University 16:05:00 [place] Physician s BP Diastolic 2017-09-16 70 mm[Hg] University of 16:05:00 [place] Physician s Height 2017-09-16 61 [in_us] University of 16:05:00 [place] Physician s Weight 2017-09-16 127 [lb_av] University of 16:05:00 [place] Physician s Body Mass Index 2017-09-16 24 kg/m2 University o f Calculated 16:05:00 [place] Physician s Heart Rate 2017-09-16 55 /min University of 16:05:00 [place] Physician s BP Systolic 2017-06-19 136 mm[Hg] Location: [facility] 15:48:00 Position: [place] Physician s Sitting BP Diastolic 2017-06-19 78 mm[Hg] Location: [facility] 15:48:00 Position: [place] Physician s Sitting Height 2017-06-19 61 [in_us] University of 15:48:00 [place] Physician s Weight 2017-06-19 131 [lb_av] [place] of 15:48:00 [place] Physician s Body Mass Index 2017-06-19 24.75 kg/m2 University o f Calculated 15:48:00 [place] Physician s Heart Rate 2017-06-19 60 /min Location: [facility] 15:48:00 Radial; [place] Physician s Quality: Normal BP Systolic 2017-05-22 147 mm[Hg] University of 14:06:00 [place] Physician s BP Diastolic 2017-05-22 81 mm[Hg] University of 14:06:00 [place] Physician s Height 2017-05-22 61 [in_us] University of 14:06:00 [place] Physician s Weight 2017-05-22 131 [lb_av] University of 14:06:00 [place] Physician s Body Mass Index 2017-05-22 24.75 kg/m2 University o f Calculated 14:06:00 [place] Physician s Heart Rate 2017-05-22 60 /min University of 14:06:00 [place] Physician s BP Systolic 2017-04-18 160 mm[Hg] University of 14:02:00 [place] Physician s BP Diastolic 2017-04-18 80 mm[Hg] University of 14:02:00 [place] Physician s Height 2017-04-18 61 [in_us] University of 14:02:00 [place] Physician s Weight 2017-04-18 132 [lb_av] University of 14:02:00 [place] Physician s Body Mass Index 2017-04-18 24.94 kg/m2 University o f Calculated 14:02:00 [place] Physician s Heart Rate 2017-04-18 66 /min University of 14:02:00 [place] Physician s Procedures Procedure Date / Time Performing Clinician Source Performed [QLH] CMP W/EGFR 2019-03-24 00:00:00 [facility] Physicians [LH] CBC (without 2019-03-24 00:00:00 [facility] differential) Physicians [QLH] CBC (INCLUDES 2019-01-14 00:00:00 [facility] DIFF/PLT) Physicians [QLH] CMP W/EGFR 2019-01-14 00:00:00 [facility] Physicians [U] XRAY ANKLE MIN [facility] 2018-02-06 00[facility]00[facility]00 [facility] [id number] [facility] [U] XRAY ANKLE MIN [facility] 2017-12-11 00:00:00 [facility] [id number] Physicians [U] XRAY ANKLE MIN [facility] 2017-11-08 00:00:00 Uni [facility] RIGHT [id number] Physicians [U] XRAY ANKLE MIN [facility] 2017-10-25 00:00:00 Uni [facility] RIGHT [id number] Physicians [W] PET Stress Perfusion 2017-04-18 00:00:00 [facility] Physicians History of Tonsillectomy [facility] Physicians History of Hysterectomy [facility] Physicians [facility] of [facility] Physicians History of University o f [place] [facility] Physicians History of Hip Surgery [facility] Right Physicians Plan of Care Planned Activity Planned Date Details Comments Source Diagnostic Test 2017-04-18 [W] PET Stress [facility] Pending 00:00:00 Perfusion for Physicians Ischemia [code = [W] PET Stress Perfusion for Ischemia] Future Scheduled Test 2013-03-16 Plan of Care [code Floyd Coleman 19:01:14 = 32498-2] Future Scheduled Test 2013-03-12 Plan of Care [code Floyd Coleman 20:33:15 = 73096-5] Future Scheduled Test 2013-02-03 Plan of Care [code Floyd Coleman 22:51:22 = 94895-0] Future Scheduled Test 2012-11-06 Plan of Care [code Floyd Villagranann 21:02:35 = 69641-1] Future Scheduled Test 2012-09-18 Plan of Care [code Floyd Coleman 10:03:04 = 70877-0] Future Scheduled Test 2012-09-03 Plan of Care [code [facility] 03:18:50 = 83174-3] Future Scheduled Test 2012-08-07 Plan of Care [code [facility] [place] 06:02:23 = 61090-8] Future Scheduled Test 2012-06-28 Plan of Care [code [facility] [place] 01:21:02 = 57947-4] Future Scheduled Test 2012-02-22 Plan of Care [code [facility] Jared 20:20:19 = 52153-8] Future Appointment 2019-10-21 Gwendolyn RIBEIRO [facility] 13:30:00 Maryann HUNT Encounters Start End Encounter Admission Attending Care Care Encounter Source Date/Time Date/Time Type Type Clinicians Facility Department ID 2019-04-13 Outpatient MHSE CAR [id number] 08:31:14 [facility] 2019-08-26 2019-08-26 AppointADELAIDA [facility] [id number] Univers 14:45:00 14:45:00 t; QUINTIN HUNT Advanced it y lily RIBEIRO M.D. Heart [place] M.D. Failure - Physic i [facility] 2019-06-17 2019-06-17 AppointADELAIDA Pined[facility] [id number] Univers 15:45:00 15:45:00 t; QUINTIN HUNT Advanced it Chikis M.D. Heart [place] M.D. Failure - Physic i [facility] 2019-06-17 2019-06-17 AppointADELAIDA Pineda [facility] [id number] Univers 15:30:00 15:30:00 t; QUINTIN HUNT Advanced it Chikis M.D. Heart [place] M.D. Failure - Physic i [facility] 2019-05-14 2019-05-14 AppointADELAIDA Pined[facility] [id number] Univers 15:30:00 15:30:00 t; QUINTIN HUNT Advanced it y lily RIBEIRO M.D. Heart [place] M.D. Failure - Physic i [facility] 2019-04-23 2019-04-23 AppointADELAIDA [facility] [id number] Univers 15:45:00 15:45:00 t; QUINTIN HUNT Advanced it y lily RIBEIRO M.D. Heart [place] M.D. Failure - Physic i [facility] 2019-03-24 2019-03-24 AppointADELAIDA Pineda [facility] [id number] Univers 15:45:00 15:45:00 t; QUINTIN HUNT Advanced it y of Gwendolyn RIBEIRO Heart [place] M.Yuniel Failure - Physic i [facility] 2019-01-14 2019-01-14 AppointADELAIDA Pineda [facility] [id number] Univers 15:30:00 15:30:00 t; QUINTIN HUNT Advanced it y of Gwendolyn RIBEIRO Heart [place] M.Yuniel Failure - Physic i [facility] 2018-12-25 2018-12-25 ADEALIDA Muse [facility] [id number] Univers 16:00:00 16:00:00 t; QUINTIN HUNT ity lily RIBEIRO M.D. [facility] 2018-12-25 2018-12-25 ADELAIDA Muse [facility] [id number] Univers 15:30:00 15:30:00 t; QUINTIN HUNT Advanced it y of Gwendolyn RIBEIRO Heart [place] M.Yuniel Failure - Physic i [facility] 2018-12-25 2018-12-25 ADELAIDA Muse [facility] [id number] Univers 15:15:00 15:15:00 t; QUINTIN HUNT Advanced it y of Gwendolyn RIBEIRO Heart [place] M.Yuniel Failure - Physic i [facility] 2018-09-25 2018-09-25 ADELAIDA Muse [facility] [id number] Univers 15:40:00 15:40:00 t; QUINTIN HUNT, Surgery - i ty of Gwendolyn RIBEIRO [facility] M.Yuniel Physic ans 2018-05-22 2018-05-22 ADELAIDA Bueno Cardiology [id number] Univers 13:40:00 13:40:00 t; margarita BUCK ronaly of [place] M.Yuniel [facility] as HEBER Physic i M.[place] ans 2018-05-19 2018-05-19 ADELAIDA Bueno [facility] [id number] Univers 14:00:00 14:00:00 t; jin BUCK of JOEENE HEBER Alfaro Physic i [place] ans 2018-02-12 2018-02-12 ADELAIDA Schmidt [facility] [id number] Univers 13:15:00 13:15:00 t; CARLOS HARRIS ity o f ANDREW, M.D. [facility] Physici ans 2018-01-20 2018-01-20 Appointmen ADELAIDA MANCERA Cardiology [id number] Univers 14:00:00 14:00:00 t; HEBER at [facility] CALDERON Snow [facility] as , HEBER Physic i M.D. ans 2017-12-18 2017-12-18 Appointmen ADELAIDA HARRIS Orthopedics [id number] Univers 13:45:00 13:45:00 t; CARLOS HARRIS ity o f ANDREW, M.D. [facility] Physici ans 2017-11-20 2017-11-20 AppointADELAIDA Ayala [facility] [id number] Univers 14:00:00 14:00:00 t; NEMESIO JACKSON, MACHINE CRATER ity of [facility], [facility] Physici ans 2017-10-30 2017-10-30 AppointADELAIDA [facility] [id number] Univers 11:15:00 11:15:00 t; CARLOS HARRIS, Orthopedics i ty lily GONZALEZ M.D. [facility] Physici ans 2017-09-16 2017-09-16 Appointbutch MANCERA [facility] Cardiology [id number] Univers 15:10:00 15:10:00 t; HEBER at [facility] CALDERON Snow [facility] as HEBER Physic i M.D. ans 2017-06-19 2017-06-19 AppointADELAIDA Solano Cardiology [id number] Univers 15:10:00 15:10:00 t; HEBER at [facility] CALDERON Snow [facility] as HEBER Physic i M.D. ans 2017-05-22 2017-05-22 Appointmen ADELAIDA MANCERA Cardiology [id number] Univers 14:10:00 14:10:00 t; HEBER at [facility] CALDERON Snow [facility] as HEBER Physic i M.D. ans 2017-04-30 2017-04-30 Appointmen SE, [facility] [id number] Univers 13:45:00 13:45:00 t; SE, ity of ECHO [place] Physici ans 2017-04-18 2017-04-18 Appointmen TIFFANIEJORGEALEXIS, UTP Cardiology [id number] Univers 14:00:00 14:00:00 t; HEBER at ity of NAS[place]ENE M.DPedrito [facility] as HEBER, Physic i M.D. ans 2017-04-17 2017-04-17 Appointmen TIFFANIEJORGEALEXIS, UTP Cardiology [id number] Univers 14:00:00 14:00:00 t; HEBER at ity of NASCJORGEENE M.DPedrito [facility] as HEBER, Physic i M.D. ans 2016-12-14 2016-12-14 Appointmen JOEENE, UTP UTP [id number] Univers 13:10:00 13:10:00 t; jin BUCK of [place] M.DPedrito [place] HEBER Physic i M.D. ans 2016-12-07 2016-12-07 Appointmen JOEENE, UTP UTP [id number] Univers 13:45:00 13:45:00 t; jin BUCK of NASCIMBENE M.Yuniel [place] HEBER Physic i M.D. ans 2016-12-07 2016-12-07 Appointmen JOEENE, UTP UTP [id number] Univers 13:40:00 13:40:00 t; jin BUCK of [place] M.DPed[place] HEBER Physic i M.D. ans 2016-08-10 2016-08-10 Appointmen JOEENE, UTP UTP [id number] Univers 14:40:00 14:40:00 t; jin BUCK of [place] M.Yuniel [place] HEBER Physic i M.D. ans 2016-04-20 2016-04-20 Appointmen JOEENE, UTP UTP [id number] Univers 14:30:00 14:30:00 t; HEBER itlu of NASCIMBENE M.DHEBER Celis Physic i M.D. ans 2016-01-06 2016-01-06 Appointmen JOEENE, UTP UTP [id number] Univers 13:45:00 13:45:00 t; HEBER itlu of NASCJORGEENE M.DPedrito [place] HEBER Physic i M.D. ans 2015-09-08 2015-09-08 Appointmen CALDERON, [facility] UTP [id number] Univers 13:00:00 13:00:00 t; Mike BUCK M.D., ANGELO, Physic i M.D. [facility] 2015-08-05 2015-08-05 Appointbutch MANCERA, [facility] UTP [id number] Univers 15:00:00 15:00:00 t; Mike BUCK M.D., ANGELO, Physic i M.D. [facility] 2015-06-20 2015-06-20 [facility], [facility] UTP [id number] Univers 14:10:00 14:10:00 t; Mike BUCK M.D., ANGELO, Physic i M.D. [facility] 2015-03-17 2015-03-17 Appointbutch MANCERA, [facility] [id number] Univers 14:50:00 14:50:00 t; margarita BUCK Mike Snow [facility] [place] BUCK i, M.D. [facility] 2013-03-16 2013-03-16 Outpatient MHIE MHIE [id number] 13:01:14 13:01:14 2013-03-12 2013-03-12 Outpatient MHIE MHIE [id number] 14:33:16 14:33:15 2013-02-03 2013-02-03 Outpatient MHIE MHIE [id number] 16:51:22 16:51:22 2012-11-06 2012-11-06 Outpatient MHIE MHIE [id number] 16:02:35 16:02:35 2012-09-18 2012-09-18 Outpatient MHIE MHIE [id number] 05:03:25 05:03:04 2012-09-02 2012-09-02 Outpatient MHIE MHIE [id number] 22:19:11 22:18:50 2012-08-07 2012-08-07 Outpatient MHIE MHIE [id number] 01:02:53 01:02:23 2012-06-27 2012-06-27 Outpatient MHIE MHIE [id number] 20:21:20 20:21:02 2012-03-24 2012-03-24 Outpatient MHIE MHIE [id number] 18:50:40 18:50:22 2012-03-18 2012-03-18 Outpatient MHIE MHIE [id number] 13:02:25 13:02:07 2012-02-22 2012-02-22 [id number] 14:20:35 14:20:19 Results Test Description Test Time Test Comments Results Result Comments Source [[facility]] CMP W/EGFR 2019-04-10 13:29:00 Test Item Value Reference Range Interpretation Comme nts GLUCOSE; Normal (test 99 mg/dl 65-139 N Non-fa sting reference interval code = 1547-9) UREA NITROGEN (BUN) (test 10 mg/dl 7-25 N code = UREA NITROGEN (BUN)) CREATININE (test code = 0.66 mg/dl 0.60-0.93 N For patients >49 years of age, CREATININE) the reference l imitfor Creatinine is a pproximately 13% higher for peop leidentified as -Divya n. eGFR NON- 86 {ML/MIN/1.7} > OR = 60 N (test code = eGFR NON-) eGFR 99 {ML/MIN/1.7} > OR = 60 N (test code = eGFR ) BUN/CREATININE RATIO NOT APPLICABLE 08-16 (test code = BUN/CREATININE RATIO) SODIUM (test code = 139 mmol/L 135-146 N SODIUM) POTASSIUM (test code = 4.3 mmol/L 3.5-5.3 N POTASSIUM) CHLORIDE (test code = 102 mmol/L 98-110 N CHLORIDE) CARBON DIOXIDE (test code 31 mmol/L 20-32 N = CARBON DIOXIDE) CALCIUM (test code = 9.3 mg/dl 8.6-10.4 N CALCIUM) PROTEIN, TOTAL (test code 6.1 g/dl 6.1-8.1 N = PROTEIN, TOTAL) ALBUMIN (test code = 3.9 g/dl 3.6-5.1 N ALBUMIN) GLOBULIN (test code = 2.2 {G/DL CALC} 1.9-3.7 N GLOBULIN) ALBUMIN/GLOBULIN RATIO 1.8 {CALC} 1.0-2.5 N (test code = ALBUMIN/GLOBULIN RATIO) BILIRUBIN, TOTAL; Normal 0.9 mg/dl 0.2-1.2 N (test code = 05696-4) ALKALINE PHSPHATASE (test 49 u/l 37-153 N code = ALKALINE PHSPHATASE) AST; Normal (test code = 18 u/l 10-35 N 1916-6) ALT; Normal (test code = 11 u/l 6-29 N 1742-6) [facility][QL] CBC (H/H, RBC, INDICES, WBC, PLT)2019-04-10 13:29:00 Test Item Value Reference Range Interpretation Comments WHITE BLOOD CELL COUNT 8.3 {Thousand/u} 3.8-10.8 N (test code = WHITE BLOOD CELL COUNT) RED BLOOD CELL COUNT (test 4.04 {Million/uL} 3.80-5.10 N code = RED BLOOD CELL COUNT) HEMAGLOBIN; Normal (test 12.7 g/dl 11.7-15.5 N code = 29519-4) HEMATOCRIT; Normal (test 37.5 % 35.0-45.0 N code = 4544-3) MCV; Normal (test code = 92.8 fL 80.0-100.0 N 787-2) MCHC; Normal (test code = 33.9 g/dl 32.0-36.0 N 19182-6) RDW; Normal (test code = 12.6 % 11.0-15.0 N 788-0) PLATELET COUNT; Normal 235 {Thousand/u} 140-400 N (test code = 777-3) MPV; Normal (test code = 11.2 fL 7.5-12.5 N 97430-4) [facility][U] XRAY ANKLE MIN 3 VWS RIGHT [id number] 13:24:00Images acquired, not reported on this accession number.[facility][U] XRAY ANKLE MIN 3 VWS RIGHT [id number] 14:35:00Images acquired, not reported on this accession number.[facility] [U] XRAY ANKLE MIN 3 VWS RIGHT [id number] 11:19:00Images acquired, not reported on this accession number.[facility] Ankle 3 views [id number] 02:23:00EXAM: XR RIGHT ANKLE 3 VIEWSDATE: 10/12/2017 2:23 AM CDTINDICATION: - post splintCOMPARISON: Right ankle radiograph 10/11/2017TECHNIQUE: AP, oblique and lateral radiographs of the ankleFINDINGS: Evaluation is limited by overlying splint material. There is nownear-anatomic alignment of the right ankle mortise status post closed reductionand splinting. There is redemonstration of a right distal fibular fracture. Theankle mortise is congruent. IMPRESSION: Near-anatomic alignment of the right ankle status post closedreduction and splinting.UT SECTION: ER--This report was dictated by a Oil Spraying Machine Operator/Fellow. I have personallyreviewed the images aswell as the Resident's interpretation and agree with the findings.Read by: Pete Rodriguez MD Resident: Hui Rodriguez MDDictated Date/time: 10/12/17 03:13Electronically Signed by: Rodney Sylvester MD 10/12/1802:52FINAL REPORTUnMountain [facility] PhysiciansXRAY Hand AP lateral oblique [id number] 02:19:00EXAM: XR LEFT HAND 3 VIEWSEXAM: XR LEFT WRIST 3 VIEWSDATE: 10/12/2017 2:19 AM CDTINDICATION: - post splintCOMPARISON: Left hand and wrist radiographs 10/11/2017TECHNIQUE: 3 views of the hand, 3 views of the wristFINDINGS: Evaluation is obscured by overlying splint material.Hand: Redemonstration of comminuted, displaced right fifth carpometacarpal midshaft fracture with slight interval increase in apex volar angulation anddisplacement. Third third metatarsal base fracture is not clearly seen on thisra diograph.Wrist: Unchanged appearance of distal radius and ulna fractures. Soft tissues: Obscured by overlying splint material suggesting moderate dorsalsoft tissue swelling.IMPRESSION:1. Slight increase in volar displacement and angulation of the fifthmetacarpal fracture status post splinting.2. Unchanged appearance of distal radius and ulnar fractures.UT SECTION: ER--This report was dictated by a Oil Spraying Machine Operator/Fellow. I have personallyreviewed the images aswell as the Resident's interpretation and agree with the findings.Read by: Pete Rodriguez MD Resident: Hui Rodriguez MDDictated Date/time: 10/12/17 03:14Electronically Signed by: Rodney Sylvester MD 10/12/1802:50FINAL REPORTUnMountain View Hospital PhysiciansXRAY Wrist complete ( min.3 views) [id number] 02:19:00EXAM: XR LEFT HAND 3 VIEWSEXAM: XR LEFT WRIST 3 VIEWSDATE: 10/12/2017 2:19 AM CDTINDICATION: - post splintCOMPARISON: Left hand and wrist radiographs 10/11/2017TECHNIQUE: 3 views of the hand, 3 views of the wristFINDINGS: Evaluation is obscured by overlying splint material.Hand: Redemonstration of comminuted, displaced right fifth carpometacarpal midshaft fracture with slight interval increase in apex volar angulation anddisplacement. Third third metatarsal base fracture is not clearly seen on thisradiograph.Wrist: Unchanged appearance of distal radius and ulna fractures. Soft tissues: Obscured by overlying splint material suggesting moderate dorsalsoft tissue swelling.
--- OUTSIDE RECORDS SUMMARY | 2019-10-14 07:24 | XMS REPORT | Summary of Care ---
:1940 Author Name MARILEE Snow Address Unavailable Unavailable , Care Team Providers Name Role Phone MARILEE Snow Unavailable Unavailable JEAN CARLOS HURTADO Unavailable Unavailable Karen EVANGELISTA MD Unavailable Unavailable STEVEN HURTADO Unavailable Unavailable Unavailable Unavailable Unavailable Functional Status Name Dates Details Functional status health issues are not documented Status: Name Dates Details Cognitive status health issues are not documented Status: Problems Name Dates Details Abnormal EKG (794.31, R94.31) Status: Ac tive Aortic valve sclerosis (424.1, I35.8) St atus: Active Closed nondisplaced fracture of lateral malleolus of right fibula, initial encounter (824.2, S82.64XA) Status: Active Hypothyroidism (244.9, E03.9) Status: Ac tive 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 Refills: 0 Active Clopidogrel Bisulfate 75 MG Oral Tablet TAKE ONE TABLET BY MOUTH EVERY NIGHT AT BEDTIME Quantity: 90 Refills: 1 QUINTIN HUNT M.D. Start : 26-Mar-2016 Active Nitroglycerin 0.4 MG Sublingual Tablet Sublingual PLACE ONE TABLET UNDER TONGUE NEEDED FOR CHEST PAIN EVERY 5 MINUTES. IF NOT RELIEVED IN 5 MINUTESAFTER 1ST DOSE, CALL 911 Quantity: 90 Refills: 1 QUINTIN HUNT M.D. Start : 06-Jun-2011 Active Isosorbide Mononitrate ER 60 MG Oral Tablet Extended Release 24 Hour TAKE 1 TABLET BY MOUTH ONCE DAILY Quantity: 90 Refills: 1 QUINTIN HUNT M.D. Start : 12-Jul-2011 Active Carvedilol 12.5 MG Oral Tablet TAKE 1 TABLET BY MOUTH TWICE DAILY Quantity: 180 Refills: 1 QUINTIN HUNT M.D. Start : 19-Oct-2011 Active Gabapentin 400 [...] weeks Refills: 0 Start : 08-Sep-2015 Active Calcium 600 MG Oral Tablet TAKE 1 TABLET DAILY. Refills: 0 Start : 20-Jan-2018 Active Vitamin D3 25 MCG (1000 UT) Oral Capsule TAKE DIRECTED. Refills: 0 Start : 20-Jan-2018 Active Allergies and Adverse Reactions Name Dates Details No Known Drug Allergies (Allergy) Status : Active Past Medical History Name Dates Details History of Arthritis (V13.4) Status: Res olved History of Coronary Artery Disease (V12.59) Status: Resolved History of essential hypertension (V12.59, Z86.79) Status: Resolved History of Fracture of right hip (820.8, S72.001A) Status: Resolved History of hepatitis C (V12.09, Z86.19) Status: Resolved History of hyperlipidemia (V12.29, Z86.39) Status: Resolved Procedures Procedure Dates Details History of Tonsillectomy Completed History of Hysterectomy Completed History of Cholecystectomy Completed History of Section Completed History of Hip Surgery Right Completed Immunization Name Dates Details Immunizations not documented Family History Name Dates Details Family history of Hypertension (V17.49) Comments: Family History Status: Active Family history of Diabetes Mellitus (V18.0) Comments: Family History Status: Active Name Dates Details Family history of Stroke Syndrome (V17.1) Status: Active Name Dates Details Family history of Cancer Status: Active Social History Name Dates Details - Status: Name Dates Details Ex-smoker (finding) Vital Signs Date Test Result Details No Known Vitals to report Results Date Description Value Details Results not documented Plan of Care Name Dates Details Planned Observations Planned Goals not documented Planned Encounters Appointment; QUINTIN HUNT M.D. On: 21-Oct-2019 13:3 0 Interventions Provided Plan# Coronary artery disease- CCS Class II/III angina- Continue current guideline-directed therapy for CAD and angina- Will discuss CONTINUITY EDITOR revascularization again in 6-8 weeks as patient will discuss with family and decide. She knows we will wait till after the coronavirus pandemic is more past us and that we will perform [facility] at [facility] (Dr. Sheppard to assist me)- Given the findings on her prior cardiac PET, CONTINUITY EDITOR intervention seems to be in her favor. There is alarge-severe stress-induced perfusion defect involving 50% of the left ventricle in the areas of theanterior and anteroseptal wall segments.# Hypertension- Continue current therapy- Blood pressure goal < 130/80 mmHg- Sodium-restricted, heart healthy diet# Dyslipidemia- Continue statinFollow-up in 6-8 weeksDiscussion/SummaryClinical cardiac findings reviewed and discussed . Instructions Name Dates Details Instructions not documented Encounters Appointment; HEBER MANCERA M.D. On: 16-Sep-2017 15:10 Encounter Diagnosis: Problem not documented Appointment; CARLOS HARRIS M.D. On: 30-Oct-2017 11:15 Encounter Diagnosis: Problem not documented Appointment; NEMESIO JACKSON NP On: 20-Nov-2017 14:00 Encounter Diagnosis: Problem not documented Appointment; CARLOS HARRIS M.D. On: 18-Dec-2017 13:45 Encounter Diagnosis: Problem not documented Appointment; HEBER MANCERA M.D. On: 20-Jan-2018 14:00 Encounter Diagnosis: Problem not documented Appointment; CARLOS HARRIS M.D. On: 12-Feb-2018 13:15 Encounter Diagnosis: Problem not documented Appointment; HEBER MANCERA M.D. On: 19-May-2018 14:00 Encounter Diagnosis: Problem not documented Appointment; HEBER MANCERA M.D. On: 22-May-2018 13:40 Encounter Diagnosis: Problem not documented Appointment; QUINTIN HUNT M.D. On: 25-Sep-2018 15:40 Encounter Diagnosis: Problem not documented Appointment; QUINTIN HUNT M.D. On: 25-Dec-2018 15:1 5 Encounter Diagnosis: Problem not documented Appointment; QUINTIN HUNT M.D. On: 25-Dec-2018 16:0 0 Encounter Diagnosis: Problem not documented Appointment; QUINTIN HUNT M.D. On: 14-Jan-2019 15:3 0 Encounter Diagnosis: Problem not documented Appointment; QUINTIN HUNT M.D. On: 24-Mar-2019 15:4 5 Encounter Diagnosis: Problem not documented Appointment; QUINTIN HUNT M.D. On: 17-Jun-2019 15:3 0 Encounter Diagnosis: Problem not documented Appointment; QUINTIN HUNT M.D. On: 26-Aug-2019 14:45 Encounter Diagnosis: Problem not documented
[2019-10-14] MEDS ORDERED: methocarbamoL 500 MG TAB ONE (08:24)
[2019-10-14] MEDS ORDERED: ONDANSETRON 4 MG/2 ML VIAL ONE (08:24)
[2019-10-14] MEDS ORDERED: METHYLPREDNISOLONE 125 MG INJ ONE (08:24)
[2019-10-14] MEDS ORDERED: MORPHINE 2 MG/ML SYR ONE (08:24)
--- NOTE | 2019-10-14 09:25 | RAD REPORT ---
EXAM DESCRIPTION: CT - Abdomen Pelvis W Contrast - 10/14/2019 8:55 am CLINICAL HISTORY: right hip flank pain, abdominal pain, history of prior appendectomy, cholecystecto my, and oophorectomy COMPARISON: Head C Spine Cap W Con dated 10/11/2017 TECHNIQUE: Biphasic, helical CT imaging of the abdomen and pelvis was performed following 100 ml non -ionic IV contrast. No oral contrast administered. All CT scans are performed using dose optimization technique as appropriate and may include automated exposure control or mA/KV adjustment according to patient size. FINDINGS: No suspicious findings in the lung bases. No cardiomegaly or pericardial effusion. No focal liver parenchymal lesions seen. Numerous splenic granulomatous calcifications are present ma tching comparison. No pancreatic parenchymal abnormality identified. Gallbladder is absent. Intrahepa tic and extrahepatic biliary tree dilatation are present but not clearly different from comparison. Symmetric renal function is seen with no hydronephrosis or suspicious renal mass. No pyelonephritis o r acute parenchymal process. No bladder stone or focal bladder wall finding. No uterine abnormality. No right ovary abnormality. Left ovary is not identified and may be the surgically resected ovary. No adnexal abnormalities. No adrenal abnormalities. No dilated bowel loops or bowel wall thickening. No acute GI process identifiable. There is a moderat e amount of stool in the right-side of the colon. No free air, free fluid or inflammatory stranding. No hernia, mass or bulky lymphadenopathy. Prominent disc and bony degenerative changes are present. No acute bone finding identifiable. Postsur gical changes are present to the proximal right femur. No acute component seen. IMPRESSION: Contrast enhanced CT abdomen and pelvis showing no acute or emergent finding.
[2019-10-14 09:56] LABS: Urine Blood NEGATIVE (NEG); Urine Glucose NEGATIVE (NEG); Urine Protein NEGATIVE (NEG); Urine Specific Gravity 1.015 (1.005-1.030); Urine pH 7.5 (5.0-7.0)
--- NOTE | 2019-10-14 10:06 | EDPHYS ---
Physician Documentation [facility] Name: Ronnie Anand Age: 79 yrs Sex: Female : 1940 Arrival Date: 10/14/2019 Time: 07:25 Bed 6 Private MD: Out, [facility] ED Physician Alexi Duron HPI: 10/13 08:20 This 79 yrs old Female presents to ER via Wheelchair with complaints of Leg kdr Pain - R, Groin Pain. 08:20 The patient or guardian reports decreased range of motion, pain. that occurred at an kdr unknown site, sustained from unknown reason, There is no obvious deformity, The patient is able to self ambulate. The patient is able to bear their full body weight. The patient states that she has had this pain for many weeks. She has seen Dr. Ruiz for the pain. She reports that she has had her right hip replaced by Dr. Ruiz several years ago. He did an x-ray and gave her pain meds not finding any focus for the pain. The pain appears to radiate from right lower back/spine down through her buttock and into her right leg. Her most comfortable position is laying on her left side. There are no other associated problems. The complaints affect the right hip. Onset: The symptoms/episode began/occurred at an unknown time. has been going on for many weaks. Modifying factors: The symptoms are alleviated by nothing. Associated signs and symptoms: Loss of consciousness: the patient experienced no loss of consciousness. Severity of symptoms: At their worst the symptoms were moderate, severe, just prior to arrival, in the emergency department the symptoms are unchanged. The patient has experienced similar episodes in the past, chronically, but today's symptoms are worse, more painful. The patient has been recently seen by a physician: Dr. Ruiz. Historical: - Allergies: 07:40 No Known Allergies; iw - Home Meds: 07:40 carvedilol 25 mg Oral tab [Active]; clopidogrel 75 mg Oral tab 1 tab once daily iw [Active]; Isosorbide Mononitrate Oral [Active]; - PMHx: 07:40 Hypertension; iw - PSHx: 07:40 Appendectomy; OVARY REMOVED; Cholecystectomy; ; iw - Immunization history:: Adult Immunizations up to date. - Social history:: Smoking status: . ROS: 08:20 Constitutional: Negative for fever, chills, and weight loss, Eyes: Negative for injury, kdr pain, redness, and discharge, Neck: Negative for injury, pain, and swelling, Cardiovascular: Negative for chest pain, palpitations, and edema, Respiratory: Negative for shortness of breath, cough, wheezing, and pleuritic chest pain, Abdomen/GI: Negative for abdominal pain, nausea, vomiting, diarrhea, and constipation, Back: Negative for injury and pain, : Negative for injury, bleeding, discharge, and swelling, Skin: Negative for injury, rash, and discoloration, Neuro: Negative for headache, weakness, numbness, tingling, and seizure activity. Psych: Negative for depression, anxiety, suicide ideation, homicidal ideation, and hallucinations, Allergy/Immunology: Negative for hives, rash, and allergies, Endocrine: Negative for neck swelling, polydipsia, polyuria, polyphagia, and marked weight changes, Hematologic/Lymphatic: Negative for swollen nodes, abnormal bleeding, and unusual bruising. 08:20 MS/extremity: Positive for decreased range of motion, pain, tenderness, of the right gluteus lexus. Exam: 08:20 Constitutional: This is a well developed, well nourished patient who is awake, alert, kdr and in no acute distress. Head/Face: Normocephalic, atraumatic. Eyes: Pupils equal round and reactive to light, extra-ocular motions intact. Lids and lashes normal. Conjunctiva and sclera are non-icteric and not injected. Cornea within normal limits. Periorbital areas with no swelling, redness, or edema. Neck: Trachea midline, no thyromegaly or masses palpated, and no cervical lymphadenopathy. Supple, full range of motion without nuchal rigidity, or vertebral point tenderness. No Meningismus. Chest/axilla: Normal chest wall appearance and motion. Nontender with no deformity. No lesions are appreciated. Cardiovascular: Regular rate and rhythm with a normal S1 and S2. No gallops, murmurs, or rubs. Normal PMI, no JVD. No pulse deficits. Respiratory: Lungs have equal breath sounds bilaterally, clear to auscultation and percussion. No rales, rhonchi or wheezes noted. No increased work of breathing, no retractions or nasal flaring. Abdomen/GI: Soft, non-tender, with normal bowel sounds. No distension or tympany. No guarding or rebound. No evidence of tenderness throughout. Back: No spinal tenderness. No costovertebral tenderness. Full range of motion. Skin: Warm, dry with normal turgor. Normal color with no rashes, no lesions, and no evidence of cellulitis. Neuro: Awake and alert, GCS 15, oriented to person, place, time, and situation. Cranial nerves II-XII grossly intact. Motor strength 5/5 in all extremities. Sensory grossly intact. Cerebellar exam normal. Normal gait. Psych: Awake, alert, with orientation to person, place and time. Behavior, mood, and affect are within normal limits. 08:20 Musculoskeletal/extremity: Extremities: grossly normal except: noted in the right gluteus lexus, right hip, lateral aspect of right thigh and right quadriceps: decreased ROM, pain. Vital Signs: 07:35 BP 107 / 69; Pulse 72; Resp 16; Temp 97.3; Pulse Ox 98% on R/A; Weight 57.15 kg; Height iw 5 ft. 0 in. (152.40 cm); Pain 8/10; 08:26 BP 138 / 75; Pulse 56; Resp 16; Pulse Ox 100% ; sv 09:05 BP 146 / 68; Pulse 73; Resp 16; Pulse Ox 98% on R/A; sv 07:35 Body Mass Index 24.61 (57.15 kg, 152.40 cm) iw MDM: 08:20 Data reviewed: vital signs, nurses notes, lab test result(s), radiologic studies. kdr Counseling: I had a detailed discussion with the patient and/or guardian regarding: the historical points, exam findings, and any diagnostic results supporting the discharge/admit diagnosis, lab results, radiology results, the need for outpatient follow up. 10:05 Patient medically screened. kdr 10:08 ED course: The patient is feeling better thought the pain is not completely relieved. kdr She was happy with the care provided and the plan for discharge and follow-up.. 10/13 09:10 Order name: CREATININE WHOLE BLOOD; Complete Time: 09:22 EDMS 10/13 09:39 Order name: Urine Dipstick--Ancillary (enter results); Complete Time: 10:03 bd 10/13 08:01 Order name: CT Abd/Pelvis - IV Contrast Only; Complete Time: 10:03 kdr Administered Medications: 08:19 Drug: SOLU-Medrol 125 mg Route: IVP; Site: right antecubital; sv 08:48 Follow up: Response: No adverse reaction sv 08:21 Drug: Zofran (Ondansetron) 4 mg Route: IVP; Site: right antecubital; sv 08:48 Follow up: Response: No adverse reaction sv 08:23 Drug: morphine 2 mg Route: IVP; Site: right antecubital; sv 08:48 Follow up: Response: No adverse reaction; RASS: Restless (+1) sv 08:23 Drug: Robaxin 750 mg Route: PO; sv 08:48 Follow up: Response: No adverse reaction sv Disposition: 10/14/19 10:05 Discharged to Home. Impression: Sciatica, right side, Low back pain. - Condition is Stable. - Discharge Instructions: Back Pain, Adult, Musculoskeletal Pain, Sciatica, [id number]. - Prescriptions for Tylenol- Codeine #3 300-30 mg Oral Tablet - take 1 tablet by ORAL route every 4-6 hours As needed; 15 tablet. Diclofenac Sodium 75 mg Oral Tablet Sustained Release - take 1 tablet by ORAL route 2 times per day; 30 tablet. Medrol (Perfecto) 4 mg Oral Tablets, Dose Pack - take 1 tablet by ORAL route as directed - follow package instructions; 1 packet. Cyclobenzaprine 5 mg Oral Tablet - take 1 tablet by ORAL route 3 times per day As needed; 15 tablet. - Medication Reconciliation Form, Thank You Letter, Prescription Opioid Use form. - Follow up: Private Physician; When: 2 - 3 days; Reason: If symptoms return, Further diagnostic work-up, Recheck today's complaints, Continuance of care, Re-evaluation by your physician. - Problem is an ongoing problem. - Symptoms have improved. Signatures: Dispatcher [employer] [facility] Mana Dillon RN RN Alexi Yañez MD MD kdr Williams, Irene, RN RN iw Corrections: (The following items were deleted from the chart) 08:46 08:01 Spine Lumbar Wo Con+CT.RAD.BRZ ordered. [facility] 10:56 10:05 10/14/2019 10:05 Discharged to Home. Impression: Sciatica, right side; Low back sv pain. Condition is Stable. Forms are Medication Reconciliation Form, Thank You Letter, Antibiotic Education, Prescription Opioid Use. Follow up: Private Physician; When: 2 - 3 days; Reason: If symptoms return, Further diagnostic work-up, Recheck today's complaints, Continuance of care, Re-evaluation by your physician. Problem is an ongoing problem. Symptoms have improved. kdr
--- NOTE | 2019-10-14 10:06 | ER ---
Nurse's Notes [facility] Name: Ronnie Anand Age: 79 yrs Sex: Female : 1940 Arrival Date: 10/14/2019 Time: 07:25 Bed 6 Private MD: Out, [facility] Diagnosis: Sciatica, right side;Low back pain Presentation: 10/13 07:35 Chief complaint: Patient's son or daughter states: about a week ago, got up to go to the door she got a pain in her right hip, from her knee up to her back, has a braxton in right leg, went to see ortho, had xrays done, was told she had an inflamed muscle, gave her steroids and told her to do exercises, the pain increased, tramadol was prescribed , made her sick to her stomach, has been taking half a dose but is still having a lot of pain in her leg. Coronavirus screen: At this time, the client does not indicate any symptoms associated with coronavirus-19. Ebola Screen: Patient negative for fever greater than or equal to 101.5 degrees Fahrenheit, and additional compatible Ebola Virus Disease symptoms Patient denies exposure to infectious person. Patient denies travel to an Ebola-affected area in the 21 days before illness onset. No symptoms or risks identified at this time. Initial Sepsis Screen: Does the patient meet any 2 criteria? No. Patient's initial sepsis screen is negative. Does the patient have a suspected source of infection? No. Patient's initial sepsis screen is negative. Risk Assessment: Do you want to hurt yourself or someone else? Patient reports no desire to harm self or others. Onset of symptoms was September 30, 2019. 07:35 Method Of Arrival: Wheelchair iw 07:35 Acuity: KE 3 iw Historical: - Allergies: 07:40 No Known Allergies; iw - Home Meds: 07:40 carvedilol 25 mg Oral tab [Active]; clopidogrel 75 mg Oral tab 1 tab once daily iw [Active]; Isosorbide Mononitrate Oral [Active]; - PMHx: 07:40 Hypertension; iw - PSHx: 07:40 Appendectomy; OVARY REMOVED; Cholecystectomy; ; iw - Immunization history:: Adult Immunizations up to date. - Social history:: Smoking status: . Screenin:52 Abuse screen: Denies threats or abuse. Denies injuries from another. Nutritional sv screening: No deficits noted. Tuberculosis screening: No symptoms or risk factors identified. Fall Risk None identified. Assessment: 08:15 General: Appears in no apparent distress. uncomfortable, slender, well developed, sv Behavior is calm, cooperative, appropriate for age. Pain: Complains of pain in right hip and right leg Pain currently is 8 out of 10 on a pain scale. Quality of pain is described as radiating, tender, throbbing, Is intermittent, episodic, Aggravated by increased activity, repositioning, weight bearing, Noted to be resistant to movement. Neuro: Level of Consciousness is awake, alert, obeys commands, Oriented to person, place, time, situation, Moves all extremities. Full function Speech is normal. Cardiovascular: Patient's skin is warm and dry. Respiratory: Airway is patent Respiratory effort is even, unlabored, Respiratory pattern is regular, symmetrical. Derm: Skin is pink, warm \T\ dry. Musculoskeletal: Range of motion: intact in all extremities. 09:00 Reassessment: Patient appears in no apparent distress at this time. Patient and/or hb family updated on plan of care and expected duration. Pain level reassessed. Patient is alert, oriented x 3, equal unlabored respirations, skin warm/dry/pink. 09:30 Reassessment: Pt able to lift her hips up to place the bedpan underneath her. sv 10:11 Reassessment: Patient appears in no apparent distress at this time. Patient and/or sv family updated on plan of care and expected duration. Pain level reassessed. Patient is alert, oriented x 3, equal unlabored respirations, skin warm/dry/pink. 10:56 Reassessment: Patient appears in no apparent distress at this time. Patient and/or sv family updated on plan of care and expected duration. Pain level reassessed. Patient is alert, oriented x 3, equal unlabored respirations, skin warm/dry/pink. Vital Signs: 07:35 BP 107 / 69; Pulse 72; Resp 16; Temp 97.3; Pulse Ox 98% on R/A; Weight 57.15 kg; Height iw 5 ft. 0 in. (152.40 cm); Pain 8/10; 08:26 BP 138 / 75; Pulse 56; Resp 16; Pulse Ox 100% ; sv 09:05 BP 146 / 68; Pulse 73; Resp 16; Pulse Ox 98% on R/A; sv 07:35 Body Mass Index 24.61 (57.15 kg, 152.40 cm) iw ED Course: 07:25 Patient arrived in ED. ds1 07:26 Out, of Town is Private Physician. ds1 07:39 Triage completed. iw 07:42 Alexi Duron MD is Attending Physician. kdr 07:52 Mana Dillon RN is Primary Nurse. sv 07:52 ED physician to see patient. sv 07:52 Patient has correct armband on for positive identification. Bed in low position. Call sv light in reach. Pulse ox on. NIBP on. 08:15 Arm band placed on. sv 08:15 Inserted saline lock: 20 gauge in right antecubital area, using aseptic technique. sv Blood collected. Flushed right antecubital with 5 ml normal saline. 08:55 CT Abd/Pelvis - IV Contrast Only In Process Unspecified. EDMS 09:11 Awaiting radiology results. sv 09:39 Urine Dipstick--Ancillary (enter results) Sent. sv Administered Medications: 08:19 Drug: SOLU-Medrol 125 mg Route: IVP; Site: right antecubital; sv 08:48 Follow up: Response: No adverse reaction sv 08:21 Drug: Zofran (Ondansetron) 4 mg Route: IVP; Site: right antecubital; sv 08:48 Follow up: Response: No adverse reaction sv 08:23 Drug: morphine 2 mg Route: IVP; Site: right antecubital; sv 08:48 Follow up: Response: No adverse reaction; RASS: Restless (+1) sv 08:23 Drug: Robaxin 750 mg Route: PO; sv 08:48 Follow up: Response: No adverse reaction sv Output: 09:34 Urine: 200ml (Voided); Total: 200ml. sv Outcome: 10:05 Discharge ordered by . kdr 10:56 Patient left the ED. sv 10:56 Discharged to home via wheelchair, with family, discharge instructions gone over with sv the daughter. 10:56 Condition: stable 10:56 Discharge instructions given to patient, family, Instructed on discharge instructions, follow up and referral plans. no drinking with medication, no driving heavy equipment, medication usage, Demonstrated understanding of instructions, follow-up care, medications, Prescriptions given X 4. Signatures: Dispatcher [employer] Mana Whittaker RN RN sv Rittger, Kevin, MD MD [facility] Maritza Christianson ds1 Marisabel Carbone RN RN iw Keira Carrasco RN RN hb
[2019-10-14 11:07] VITALS: TEMP 97.3
[2019-10-14 11:10] VITALS: BP 146/68; O2SAT 98
== END 2019-10-14 10:56 | disposition home or self-care (01) ==
LOC: ER 07:21
DX: M54.31 Sciatica, right side (principal); I10 Essential (primary) hypertension
CPT/HCPCS: 82565; 81003; 74177; 96375; 96374; 99284; Q9967; J2270; J2930; J2405

== ENCOUNTER 2020-11-24 00:31 | Emergency (ER) | payer OTHER ==
[2020-11-24 01:02] LABS: Absolute Lymphocytes (CBC) 3.4 K/uL (0.7-4.9); Basophils % 0.9 % (0-1.3); Hematocrit 35.9 % (36.0-45.0); MPV 8.9 fL (7.6-11.3); RBC Red Blood Cell Count 3.97 M/uL (3.86-4.86)
[2020-11-24 01:04] LABS: Protime INR 1.14
[2020-11-24] MEDS ORDERED: ONDANSETRON 4 MG/2 ML VIAL ONE (01:06)
[2020-11-24] MEDS ORDERED: MORPHINE 2 MG/ML SYR ONE (01:06)
[2020-11-24 01:33] LABS: ALT/SGPT 16 U/L (12-78); AST/SGOT 12 U/L (15-37); Albumin 3.5 g/dL (3.4-5.0); Alkaline Phosphatase 68 U/L (45-117); BUN Blood Urea Nitrogen 11 mg/dL (7-18); Bicarbonate 29 mmol/L (21-32); Bilirubin Direct 0.3 mg/dL (0-0.2); Bilirubin Total 1.3 mg/dL (0.2-1.0); Glucose Level 101 mg/dL (74-106); Lipase 167 U/L (73-393); Magnesium 2.2 mg/dL (1.8-2.4); NT PRO-BNP 118 pg/mL (<450); Potassium 4.3 mmol/L (3.5-5.1); Protein, Total 6.6 g/dL (6.4-8.2); Sodium Level 134 mmol/L (136-145); Troponin (Emerg Dept Use Only) < 0.02 ng/mL (0.0-0.045)
[2020-11-24 03:16] LABS: Urine Blood Negative (Negative); Urine Glucose Negative (Negative); Urine Protein Negative (Negative); Urine Specific Gravity 1.015 (1.005-1.030); Urine pH 8.5 (5.0-7.0)
--- NOTE | 2020-11-24 03:32 | ER ---
Nurse's Notes [facility] Name: Ronnie Anand Age: 80 yrs Sex: Female : 1940 Arrival Date: 11/24/2020 Time: 00:34 Bed 16 Private MD: Diagnosis: Chest pain. Compression L4 ( Age - Indeterminate ) Presentation: 11/24 00:36 Chief complaint: Patient states: Left sided CP that radiates to her back and left arm. wr Hx of ID (2011) and 4 cardiac stents placed in february. Ebola Screen: Patient negative for fever greater than or equal to 101.5 degrees Fahrenheit, and additional compatible Ebola Virus Disease symptoms Patient denies exposure to infectious person. Initial Sepsis Screen: Does the patient meet any 2 criteria? No. Patient's initial sepsis screen is negative. Does the patient have a suspected source of infection? No. Patient's initial sepsis screen is negative. Risk Assessment: Do you want to hurt yourself or someone else? Patient reports no desire to harm self or others. Onset of symptoms was November 23, 2020. 00:36 Method Of Arrival: Wheelchair wr 00:36 Acuity: KE 2 wr Triage Assessment: 00:36 Pain: Complains of pain in left sided chest, left arm, and back. Cardiovascular: Chest wr pain is described as severe, radiates to left arm(s) back began 1 hour prior to arrival episodes are continuous. 00:36 General: Appears uncomfortable. wr 00:36 General: Behavior is crying. Neuro: No deficits noted. sj1 Historical: - Allergies: 00:43 No Known Allergies; wr - PMHx: 00:43 Myocardial infarction; wr - Immunization history:: Client reports having NOT received the Covid vaccine. - Social history:: Smoking status: Patient/guardian denies using tobacco. Screenin:42 Abuse screen: Denies threats or abuse. Denies injuries from another. Nutritional wr screening: No deficits noted. Tuberculosis screening: No symptoms or risk factors identified. Fall Risk IV access (20 points). Assessment: 00:44 Pain:. wr 01:03 Pain: Denies pain. wr Vital Signs: 00:30 BP 161 / 102 (auto/reg); Pulse 68 MON; Resp 16; Temp 97.8; Pulse Ox 100% ; Weight 49.9 wr kg; Height 5 ft. (152.40 cm); Pain 10/10; 00:30 BP 146 / 85; Pulse 74; Resp 24; Temp 98.8; Pulse Ox 100% on 2 lpm NC; wr 00:36 BP 156 / 94; Pulse 62; Resp 23; Temp 97.8; Pulse Ox 94% on R/A; Weight 49.9 kg; Height wr 5 ft. 1 in. (154.94 cm); Pain 10/10; 02:46 BP 100 / 61; Pulse 61; Resp 14; Temp 97.4; Pulse Ox 100% ; wr 00:36 Body Mass Index 20.78 (49.90 kg, 154.94 cm) wr ED Course: 00:34 Patient arrived in ED. bb 00:36 Arm band placed on Patient placed in an exam room, on a stretcher, on oxygen, on wr cardiac tech, on pulse oximetry. 00:38 Triage completed. wr 00:41 Inserted saline lock: 18 gauge in left antecubital area, using aseptic technique. Blood wr collected. Oxygen administration via nasal cannula \T\ 2L/min. 00:42 Cr Summers MD is Attending Physician. pkl 00:42 Patient has correct armband on for positive identification. Bed in low position. Call wr light in reach. Side rails up X 1. phototypesetting equipment monitor on. Pulse ox on. NIBP on. 00:46 D-Dimer Sent. bs2 00:46 Basic Metabolic Panel Sent. bs2 00:46 XRAY Chest (1 view) Sent. bs2 00:47 CBC with Diff Sent. bs2 00:47 LFT's Sent. bs2 00:47 Magnesium Sent. bs2 00:47 Troponin (emerg Dept Use Only) Sent. bs2 00:47 PT-INR Sent. bs2 00:47 NT PRO-BNP Sent. bs2 01:29 XRAY Chest (1 view) In Process Unspecified. EDMS 02:30 CT Chest For PE Angio In Process Unspecified. EDMS 02:30 CT Abd/Pelvis - IV Contrast Only In Process Unspecified. EDMS Administered Medications: 00:44 Drug: morphine 2 mg Route: IVP; Site: left antecubital; bs2 00:44 Drug: Zofran (Ondansetron) 4 mg Route: IVP; Site: left antecubital; bs2 Outcome: 03:31 Discharge ordered by . cadence 04:10 Patient left the ED. wr Signatures: Dispatcher [employer] EDMS Cr Summers MD MD pkl Ballard, Brenda, RN RN Nicci Cornelius RN RN bs2 Laisha Talbert Xochilt Danielle RN RN sj1 Corrections: (The following items were deleted from the chart) 00:44 00:43 PMHx: Hypertension; wr wr 00:49 00:36 Pain: Complains of pain in chest, left arm and posterior chest wr sj1 00:56 00:46 D-Dimer drawn and sent. bs2 EDMS 00:56 00:46 LIPASE+C.LAB.BRZ drawn and sent. 2 EDMS
--- NOTE | 2020-11-24 03:32 | EDPHYS ---
Physician Documentation [facility] Name: Ronnie Anand Age: 80 yrs Sex: Female : 1940 Arrival Date: 11/24/2020 Time: 00:34 Bed 16 Private MD: ED Physician Cr Summers HPI: 11/24 01:45 This 80 yrs old Female presents to ER via Wheelchair with complaints of Chest pkl Pain > 30 y/o. 01:45 The patient or guardian reports chest pain that is located primarily in the left chest. pkl Onset: just prior to arrival. The pain radiates to the left arm. Associated signs and symptoms: Pertinent positives: abdominal pain. The chest pain is described as sharp. Historical: - Allergies: 00:43 No Known Allergies; wr - PMHx: 00:43 Myocardial infarction; wr - Immunization history:: Client reports having NOT received the Covid vaccine. - Social history:: Smoking status: Patient/guardian denies using tobacco. ROS: 01:45 Eyes: Negative for injury, pain, redness, and discharge, ENT: Negative for injury, pkl pain, and discharge, Neck: Negative for injury, pain, and swelling. 01:45 Cardiovascular: Positive for chest pain. 01:45 Respiratory: Negative for cough, shortness of breath. 01:45 Abdomen/GI: Positive for abdominal pain, of the left upper quadrant. 01:45 Back: Negative for injury or acute deformity, acute changes. 01:45 : Negative for urinary symptoms. 01:45 MS/extremity: Negative for acute changes. 01:45 Skin: Negative for rash. 01:45 Neuro: Negative for altered mental status, loss of consciousness. Exam: 01:45 Head/Face: Normocephalic, atraumatic. Eyes: Pupils equal round and reactive to light, pkl extra-ocular motions intact. Lids and lashes normal. Conjunctiva and sclera are non-icteric and not injected. Cornea within normal limits. Periorbital areas with no swelling, redness, or edema. ENT: Nares patent. No nasal discharge, no septal abnormalities noted. Tympanic membranes are normal and external auditory canals are clear. Oropharynx with no redness, swelling, or masses, exudates, or evidence of obstruction, uvula midline. Mucous membranes moist. Neck: Trachea midline, no thyromegaly or masses palpated, and no cervical lymphadenopathy. Supple, full range of motion without nuchal rigidity, or vertebral point tenderness. No Meningismus. Chest/axilla: Normal chest wall appearance and motion. Nontender with no deformity. No lesions are appreciated. Cardiovascular: Regular rate and rhythm with a normal S1 and S2. No gallops, murmurs, or rubs. Normal PMI, no JVD. No pulse deficits. Respiratory: Lungs have equal breath sounds bilaterally, clear to auscultation and percussion. No rales, rhonchi or wheezes noted. No increased work of breathing, no retractions or nasal flaring. Abdomen/GI: Soft, non-tender, with normal bowel sounds. No distension or tympany. No guarding or rebound. No evidence of tenderness throughout. Back: No spinal tenderness. No costovertebral tenderness. Full range of motion. Skin: Warm, dry with normal turgor. Normal color with no rashes, no lesions, and no evidence of cellulitis. MS/ Extremity: Pulses equal, no cyanosis. Neurovascular intact. Full, normal range of motion. Neuro: Awake and alert, GCS 15, oriented to person, place, time, and situation. Cranial nerves II-XII grossly intact. Motor strength 5/5 in all extremities. Sensory grossly intact. Cerebellar exam normal. Normal gait. Vital Signs: 00:30 BP 161 / 102 (auto/reg); Pulse 68 MON; Resp 16; Temp 97.8; Pulse Ox 100% ; Weight 49.9 wr kg; Height 5 ft. (152.40 cm); Pain 10; 00:30 BP 146 / 85; Pulse 74; Resp 24; Temp 98.8; Pulse Ox 100% on 2 lpm NC; wr 00:36 BP 156 / 94; Pulse 62; Resp 23; Temp 97.8; Pulse Ox 94% on R/A; Weight 49.9 kg; Height wr 5 ft. 1 in. (154.94 cm); Pain 10; 02:46 BP 100 / 61; Pulse 61; Resp 14; Temp 97.4; Pulse Ox 100% ; wr 00:36 Body Mass Index 20.78 (49.90 kg, 154.94 cm) wr MDM: 00:42 Patient medically screened. pkl 03:27 Data reviewed: vital signs, nurses notes, lab test result(s), EKG, radiologic studies, pkl CT scan. ED course: Patient feeling better. Discussed lab, EKG and imaging studies with patient and daughter. Advised to follow up with PCP in 2 to 3 days. To return if necessary. Patient and daughter understood instructions. 11/24 00:34 Order name: CBC with Diff; Complete Time: 01:23 11/24 00:34 Order name: LFT's; Complete Time: :43 11/24 00:34 Order name: Magnesium; Complete Time: 11/24 00:34 Order name: NT PRO-BNP; Complete Time: : 11/24 00:34 Order name: PT-INR; Complete Time: : 11/24 00:34 Order name: Troponin (emerg Dept Use Only); Complete Time: : 11/24 00:35 Order name: Basic Metabolic Panel; Complete Time: :43 EDMN 11/24 00:43 Order name: D-Dimer [facility] 11/24 00:56 Order name: D-Dimer; Complete Time: :27 EDMN 11/24 00:57 Order name: Lipase; Complete Time: :43 EDMN 11/24 03:15 Order name: Urine Dipstick-Ancillary; Complete Time: 03:32 EDMN 11/24 00:34 Order name: XRAY Chest (1 view) 11/24 00:34 Order name: EKG; Complete Time: 00:35 11/24 00:34 Order name: Cardiac monitoring; Complete Time: 00:46 11/24 00:34 Order name: EKG - Nurse/Tech; Complete Time: 00:46 11/24 00:34 Order name: IV Saline Lock; Complete Time: 00:47 11/24 00:34 Order name: Labs collected and sent; Complete Time: 00:47 11/24 00:34 Order name: O2 Per Protocol; Complete Time: 00:47 11/24 00:34 Order name: O2 Sat Monitoring; Complete Time: 00:47 11/24 00:44 Order name: Urine Dipstick-Ancillary (obtain specimen); Complete Time: 03:19 pk 11/24 01:45 Order name: CT Chest For PE Angio pk 11/24 01:45 Order name: CT Abd/Pelvis - IV Contrast Only pkl Administered Medications: 00:44 Drug: morphine 2 mg Route: IVP; Site: left antecubital; bs2 00:44 Drug: Zofran (Ondansetron) 4 mg Route: IVP; Site: left antecubital; bs2 Disposition Summary: 11/24/20 03:31 Discharge Ordered Location: Home pkl Problem: new pkl Symptoms: have improved pkl Condition: Stable pkl Diagnosis - Chest pain. Compression L4 ( Age - Indeterminate ) pkl Followup: pkl - With: Private Physician - When: 2 - 3 days - Reason: Re-evaluation by your physician Forms: - Medication Reconciliation Form pkl - Thank You Letter pkl - Antibiotic Education pkl - Prescription Opioid Use pkl Signatures: Dispatcher [employer] EDMS Cr Summers MD MD pkl Yeni Reyes RN RN bb Ubalod Mejia, RETORT SETTER-C RETORT SETTER-Cla1 Nicci Willard RN RN bs2 Laisha Talbert wr Corrections: (The following items were deleted from the chart) 00:44 00:43 PMHx: Hypertension; wr wr 00:47 00:35 BASIC METABOLIC PANEL+C.LAB.BRZ ordered. EDMS EDMS 00:56 00:43 LIPASE+C.LAB.BRZ ordered. EDMS EDMS 00:56 00:43 D-Dimer ordered. EDMS EDMS
[2020-11-24 04:21] VITALS: BP 100/61; TEMP 97.4; O2SAT 100
--- NOTE | 2020-11-24 07:07 | RAD REPORT ---
EXAM DESCRIPTION: RAD - Chest Single View - 11/24/2020 1:29 am CLINICAL HISTORY: CHEST PAIN COMPARISON: Chest Single View dated 10/11/2017; CHEST SINGLE VIEW dated 05/19/2013; CHEST SINGLE VIEW dated 05/18/2013; CHEST SINGLE VIEW dated 05/30/2011 FINDINGS: Lines: None. Lungs: No evidence of edema or pneumonia. Pleural: No significant pleural effusions or pneumothorax. Cardiac: The heart size is within normal limits. Bones: No acute fractures. Other: IMPRESSION: No acute cardiopulmonary disease.
--- NOTE | 2020-11-24 11:09 | RAD REPORT ---
EXAM DESCRIPTION: CT - Chest For Pe Angio - 11/24/2020 6:26 am COMPARISON: None. CLINICAL HISTORY: [facility] MAIN CHEST PAIN TECHNIQUE: CT images through the chest with IV contrast using the pulmonary embolus protocol. Multip lanar reformats. Automated exposure control was utilized on this examination as a dose lowering techn ique. FINDINGS: Pulmonary arteries and vascular: Diagnostic quality bolus. No filling defects. Moderate at herosclerosis. Heart and mediastinum: Heart size is normal. No lymphadenopathy. Thyroid gland: Visualized portions are normal. Lungs: Clear. Airways: No filling defects. No bronchiectasis. Pleura: No pneumothorax. No significant pleural effusion. Musculoskeletal and soft tissues: Within normal limits for age. EXAM DESCRIPTION: CT Abdomen and Pelvis COMPARISON: CT abdomen pelvis October 14, 2019 CLINICAL HISTORY: [facility] MAIN ABDOMINAL PAIN TECHNIQUE: CT of the abdomen and pelvis was acquired with IV contrast material. Coronal and sagitt al reconstructions were obtained. Automated exposure control was utilized on this examination as a dose lowering technique. FINDINGS: Liver: Normal. Gallbladder and biliary: Cholecystectomy. Mild intra and extrahepatic biliary ductal dilatation is li sang due to reservoir effect from cholecystectomy. Pancreas: Normal. Spleen: Calcified granulomas are noted in the spleen. Adrenal glands: Normal adrenal glands. Kidneys: Normal kidneys Stomach and Small Bowel: The stomach and small bowel are normal. Urinary bladder: Normal. Uterus and Adnexa: Normal. Colon and Appendix: The colon is unremarkable. No evidence of appendicitis. Retroperitoneum and lymph nodes: Normal. Vascular: Moderate multivessel atherosclerosis. Peritoneal cavity: No ascites or free air. Musculoskeletal and soft tissues: Soft tissues are unremarkable. Lumbar spondylosis is present. No ag gressive bone lesions. Surgical changes of the right femur. There is a compression fracture of L4 w ith 40% height loss. IMPRESSION: CHEST IMPRESSION: No evidence of pulmonary embolus or other acute chest process. ABDOMEN/PELVIS IMPRESSION: 1. No acute intra-abdominal abnormality. 2. Age-indeterminate L4 compression fracture with 40% height loss. This was not visualized on the Sep exam. 3. Moderate atherosclerosis. Electronically signed by: Pradip Tomas MD 11/24/2020 3:08 AM CDT Due to temporary technical issues with the PACS/Fluency reporting system, reports are being signed by the in house radiologist without review as a courtesy to ensure prompt reporting. The interpreting r adiologist is fully responsible for the content of the report.
--- NOTE | 2020-11-24 11:11 | RAD REPORT ---
EXAM DESCRIPTION: CT - Abdomen Pelvis W Contrast - 11/24/2020 6:26 am COMPARISON: None. CLINICAL HISTORY: [facility] MAIN CHEST PAIN TECHNIQUE: CT images through the chest with IV contrast using the pulmonary embolus protocol. Multip lanar reformats. Automated exposure control was utilized on this examination as a dose lowering techn ique. FINDINGS: Pulmonary arteries and vascular: Diagnostic quality bolus. No filling defects. Moderate at herosclerosis. Heart and mediastinum: Heart size is normal. No lymphadenopathy. Thyroid gland: Visualized portions are normal. Lungs: Clear. Airways: No filling defects. No bronchiectasis. Pleura: No pneumothorax. No significant pleural effusion. Musculoskeletal and soft tissues: Within normal limits for age. EXAM DESCRIPTION: CT Abdomen and Pelvis COMPARISON: CT abdomen pelvis October 14, 2019 CLINICAL HISTORY: [facility] MAIN ABDOMINAL PAIN TECHNIQUE: CT of the abdomen and pelvis was acquired with IV contrast material. Coronal and sagitt al reconstructions were obtained. Automated exposure control was utilized on this examination as a dose lowering technique. FINDINGS: Liver: Normal. Gallbladder and biliary: Cholecystectomy. Mild intra and extrahepatic biliary ductal dilatation is li sang due to reservoir effect from cholecystectomy. Pancreas: Normal. Spleen: Calcified granulomas are noted in the spleen. Adrenal glands: Normal adrenal glands. Kidneys: Normal kidneys Stomach and Small Bowel: The stomach and small bowel are normal. Urinary bladder: Normal. Uterus and Adnexa: Normal. Colon and Appendix: The colon is unremarkable. No evidence of appendicitis. Retroperitoneum and lymph nodes: Normal. Vascular: Moderate multivessel atherosclerosis. Peritoneal cavity: No ascites or free air. Musculoskeletal and soft tissues: Soft tissues are unremarkable. Lumbar spondylosis is present. No ag gressive bone lesions. Surgical changes of the right femur. There is a compression fracture of L4 w ith 40% height loss. IMPRESSION: CHEST IMPRESSION: No evidence of pulmonary embolus or other acute chest process. ABDOMEN/PELVIS IMPRESSION: 1. No acute intra-abdominal abnormality. 2. Age-indeterminate L4 compression fracture with 40% height loss. This was not visualized on the Sep exam. 3. Moderate atherosclerosis. Electronically signed by: Pradip Tomas MD 11/24/2020 3:08 AM CDT Due to temporary technical issues with the PACS/Fluency reporting system, reports are being signed by the in house radiologist without review as a courtesy to ensure prompt reporting. The interpreting r adiologist is fully responsible for the content of the report.
--- NOTE | 2020-11-24 15:56 | EKG ---
Test Date: 2020-11-24 Test Time: 00:32:46 Lpn Or Medical Assistant: MEASUREMENT RESULTS: Intervals: Rate: 62 MA: 160 QRSD: 90 QT: 422 QTc: 428 [place]: P: 65 MA: 160 QRS: -25 T: 67 INTERPRETIVE STATEMENTS: Normal sinus rhythm Normal ECG Compared to ECG 10/11/2017 16:49:45 Myocardial infarct finding no longer present Electronically Signed On 11-24-20 15:56:16 CDT by Theron Colin
== END 2020-11-24 04:10 | disposition home or self-care (01) ==
LOC: ER 00:31
DX: R07.9 Chest pain, unspecified (principal); S32.040A Wedge compression fracture of fourth lumbar vertebra, initial encounter for closed fracture; R10.12 Left upper quadrant pain; I25.2 Old myocardial infarction
CPT/HCPCS: 93005; 85025; 80048; 36415; 83735; 85610; 85379; 80076; 81003; 84484; 83690; 83880; 71275; 74177; 71045; 96375; 96374; 99285; Q9967; J2270; J2405

== ENCOUNTER 2021-03-21 20:52 | Emergency (ER) | payer OTHER ==
[2021-03-21 22:59] LABS: Absolute Lymphocytes (CBC) 2.1 K/uL (0.7-4.9); Lymphocytes % 18.6 % (15.3-44.8); MPV 8.8 fL (7.6-11.3); RBC Red Blood Cell Count 4.15 M/uL (3.86-4.86)
[2021-03-21 23:07] LABS: Potassium 4.1 mmol/L (3.5-5.1)
[2021-03-21 23:52] LABS: SARS-COV-2 RT PCR NEGATIVE (NEGATIVE)
[2021-03-22] MEDS ORDERED: AMOX/K CLAV 875 MG TAB ONE (00:55)
--- NOTE | 2021-03-22 01:16 | RAD REPORT ---
EXAM DESCRIPTION: CT - Soft Tissue Neck W/Contr CLINICAL HISTORY: neck/throat pain, hypersalivating Neck pain, swelling COMPARISON: No comparisons TECHNIQUE All CT scans are performed using dose optimization technique as appropriate and may includ e automated exposure control or mA/KV adjustment according to patient size. FINDINGS: Nasopharyngeal tissues are normal in appearance. Fossa Rosenmller are normal. Parapharyngeal fat triangles are symmetric. Tongue base structures are normal. Epiglottis and aryepiglottic folds are normal. Piriform sinuses are well aerated. The vocal cords are normal in appearance. Salivary glands are normal in appearance. Upper lung rodríguez are clear. Included intracranial contents are unremarkable. IMPRESSION: No acute abnormality is detected.
--- NOTE | 2021-03-22 01:20 | EDPHYS ---
Physician Documentation [facility] Name: Ronnie Anand Age: 80 yrs Sex: Female : 1940 Arrival Date: 03/21/2021 Time: 20:59 Bed 24 Private MD: ED Physician Charles Chacno HPI: 03/21 22:12 This 80 yrs old Female presents to ER via Wheelchair with complaints of Sore Throat. rn 22:12 The patient presents with sore throat, Increased saliva production. The patient rn describes throat pain as scratchy. Onset: The symptoms/episode began/occurred today. Severity of symptoms: At their worst the symptoms were moderate, in the emergency department the symptoms are unchanged. Modifying factors: The symptoms are alleviated by nothing, the symptoms are aggravated by nothing, Patient's oral intake status: good. Associated signs and symptoms: Pertinent positives: cough, rhinorrhea, Pertinent negatives chest pain, shortness of breath, vomiting. The patient has not experienced similar symptoms in the past. The patient has not recently seen a physician. Patient reports here for sore throat and increased saliva production. States producing a lot of saliva and having issues keeping up with it, having a cough it up and out. Denies choking episode or pain with swallowing. Reports associated with runny nose and congestion. No fever. States eating well and can drink water without difficulty.. Historical: - Allergies: 21:43 No Known Allergies; ll3 - PMHx: 21:43 Myocardial infarction; Hyperthyroidism; Hypercholesterolemia; ll3 - PSHx: 21:43 Cholecystectomy; Hip SX; Tonsillectomy; ll3 - Immunization history:: Client reports having NOT received the Covid vaccine. - Social history:: Smoking status: Patient denies any tobacco usage or history of. - Family history:: not pertinent. - Hospitalizations: : No recent hospitalization is reported. ROS: 22:12 Constitutional: Negative for fever, chills, and weight loss, Eyes: Negative for injury, rn pain, redness, and discharge, ENT: Positive for cough and congestion and sore throat Neck: Negative for injury, pain, and swelling, Cardiovascular: Negative for chest pain, palpitations, and edema, Respiratory: Positive for cough, negative for shortness of breath Abdomen/GI: Negative for abdominal pain, nausea, vomiting, diarrhea, and constipation, Back: Negative for injury and pain, : Negative for injury, bleeding, discharge, and swelling, MS/Extremity: Negative for injury and deformity, Skin: Negative for injury, rash, and discoloration, Neuro: Negative for headache, weakness, numbness, tingling, and seizure. Exam: 22:12 Constitutional: This is a well developed, well nourished patient who is awake, alert, rn spitting saliva into emesis bag. No vomiting. Able to drink water without difficulty Head/Face: Normocephalic, atraumatic. Eyes: Periorbital areas with no swelling, redness, or edema. ENT: Mild pharyngeal erythema. No stridor. No oral swelling or asymmetry. Nontender bilateral cervical lymphadenopathy present Neck: Trachea midline, no masses palpated. Supple, full range of motion without nuchal rigidity, or vertebral point tenderness. No Meningismus. Cardiovascular: Regular rate and rhythm. No pulse deficits. Respiratory: Speaking full sentences, unlabored. No increased work of breathing, no retractions or nasal flaring. Abdomen/GI: Soft, non-tender Skin: Warm, dry with normal turgor. Normal color with no rashes, no lesions, and no evidence of cellulitis. MS/ Extremity: Pulses equal, no cyanosis. Neurovascular intact. Full, normal range of motion. Equal circumference. Neuro: Awake and alert, GCS 15 Vital Signs: 21:36 BP 103 / 71; Pulse 79; Resp 16; Temp 97.9(TE); Pulse Ox 96% on R/A; Weight 51.71 kg ll3 (R); Height 5 ft. 0 in. (152.40 cm) (R); 03/22 01:32 BP 129 / 76; Pulse 90; Resp 16 S; Temp 98.8(O); Pulse Ox 99% ; bb 03/21 21:36 Body Mass Index 22.26 (51.71 kg, 152.40 cm) ll3 MDM: 03/21 21:46 Patient medically screened. rn 03/22 01:18 Differential diagnosis: Allergic rhinitis, gastroesophageal reflux disease, group A rn strep tonsillitis, influenza, laryngitis, pharyngitis, retropharyngeal abcess tonsillitis, upper respiratory infection, viral syndrome COVID. Data reviewed: vital signs, nurses notes, lab test result(s), radiologic studies, CT scan, and as a result, I will discharge patient. Counseling: I had a detailed discussion with the patient and/or guardian regarding: the historical points, exam findings, and any diagnostic results supporting the discharge/admit diagnosis, lab results, radiology results, the need for outpatient follow up, to return to the emergency department if symptoms worsen or persist or if there are any questions or concerns that arise at home. Response to treatment: the patient's symptoms have mildly improved after treatment, and as a result, I will discharge patient. Special discussion: I discussed with the patient/guardian in detail that at this point there is no indication for admission to the hospital. It is understood, however, that if the symptoms persist or worsen the patient needs to return immediately for re-evaluation. ED course: No acute findings on CT soft tissue neck. Covid/flu/strep all negative. Will discharge home with antibiotics for pharyngitis/laryngitis and given return precautions.. 03/21 22:04 Order name: Strep; Complete Time: 23:39 03/21 22:04 Order name: COVID-19/FLU A+B (Document "Date of Onset" if Symptomatic); Complete Time: rn 23:55 03/21 22:04 Order name: Basic Metabolic Panel; Complete Time: 23:39 03/21 22:04 Order name: CBC with Diff; Complete Time: 23:39 03/21 23:12 Order name: CREATININE WHOLE BLOOD; Complete Time: 23:39 [facility] 03/21 23:29 Order name: Throat Culture [facility] 03/21 22:04 Order name: IV Start; Complete Time: 22:57 03/21 22:05 Order name: CT Soft Tissue Neck W/contr; Complete Time: 01:17 rn Administered Medications: 00:56 Drug: Augmentin (Amoxicillin-Clavulanate) 875 mg Route: PO; bb 01:32 Follow up: Response: No adverse reaction bb Disposition Summary: 03/22/21 01:19 Discharge Ordered Location: Home rn Problem: new rn Symptoms: have improved rn Condition: Stable rn Diagnosis - Acute pharyngitis, unspecified rn - Acute laryngitis rn Followup: rn - With: Private Physician - When: As needed - Reason: Recheck today's complaints, Re-evaluation by your physician Discharge Instructions: - Discharge Summary Sheet rn - Laryngitis rn - Pharyngitis rn Forms: - Medication Reconciliation Form rn - Thank You Letter rn - Antibiotic patternmaker bench - Prescription Opioid Use rn Prescriptions: - Augmentin 875-125 mg Oral Tablet - take 1 tablet by ORAL route every 12 hours for 10 days; 20 tablet; Refills: 0, rn Product Selection Permitted Signatures: Dispatcher [employer] Yeni Waite, RN Charles Callaway MD MD rn Loubet, Lynsea, RN RN ll3
--- NOTE | 2021-03-22 01:20 | ER ---
Nurse's Notes [facility] Name: Ronnie Anand Age: 80 yrs Sex: Female : 1940 Arrival Date: 03/21/2021 Time: 20:59 Bed 24 Private MD: Diagnosis: Acute pharyngitis, unspecified;Acute laryngitis Presentation: 03/21 21:36 Chief complaint: Patient states: I have been spitting up so much saliva, C/O sore ll3 throat, cough, runny nose. Coronavirus screen: Vaccine status: Patient reports being unvaccinated. cough unrelated to allergies, runny nose, sore throat, Client presents with at least one sign or symptom that may indicate coronavirus-19. Ebola Screen: No symptoms or risks identified at this time. Initial Sepsis Screen: Does the patient meet any 2 criteria? No. Patient's initial sepsis screen is negative. Does the patient have a suspected source of infection? No. Patient's initial sepsis screen is negative. Risk Assessment: Do you want to hurt yourself or someone else? Patient reports no desire to harm self or others. Onset of symptoms was March 21, 2021 at 18:30. 21:36 Method Of Arrival: Wheelchair ll3 21:36 Acuity: KE 3 ll3 Triage Assessment: 21:43 General: Appears in no apparent distress. uncomfortable, Behavior is calm, cooperative. ll3 Pain: Denies pain. EENT: Reports nasal discharge Increased saliva production, coughing up a lot of spit . Neuro: Level of Consciousness is awake, alert, obeys commands, Oriented to person, place, time, situation, Gait is unsteady, Speech is normal, Facial symmetry appears normal. Cardiovascular: Patient's skin is warm and dry. Respiratory: Respiratory effort is even, unlabored, Respiratory pattern is regular, symmetrical. GI: Patient currently denies nausea, Parent/caregiver reports the patient having normal bowel habits. Derm: Skin is pink, warm \T\ dry. Historical: - Allergies: 21:43 No Known Allergies; ll3 - PMHx: 21:43 Myocardial infarction; Hyperthyroidism; Hypercholesterolemia; ll3 - PSHx: 21:43 Cholecystectomy; Hip SX; Tonsillectomy; ll3 - Immunization history:: Client reports having NOT received the Covid vaccine. - Social history:: Smoking status: Patient denies any tobacco usage or history of. - Family history:: not pertinent. - Hospitalizations: : No recent hospitalization is reported. Screenin:02 Abuse screen: Denies threats or abuse. Denies injuries from another. Nutritional ab2 screening: No deficits noted. Tuberculosis screening: No symptoms or risk factors identified. Fall Risk None identified. Assessment: 21:59 General: Appears in no apparent distress. comfortable, Behavior is calm, cooperative, ab2 appropriate for age. Pain:. Neuro: Level of Consciousness is awake, alert, obeys commands, Oriented to person, place, time, situation, Appropriate for age Beverage Manager are equal bilaterally Moves all extremities. Cardiovascular: No deficits noted. Denies chest pain, shortness of breath, Patient's skin is warm and dry. Respiratory: Airway is patent Breath sounds are clear bilaterally. GI: No deficits noted. No signs and/or symptoms were reported involving the gastrointestinal system. : No deficits noted. No signs and/or symptoms were reported regarding the genitourinary system. EENT: Throat is clear Pt reports excessive saliva. Derm: No deficits noted. No signs and/or symptoms reported regarding the dermatologic system. Musculoskeletal: No deficits noted. No signs and/or symptoms reported regarding the musculoskeletal system. 22:55 Reassessment: Patient is alert, oriented x 3, equal unlabored respirations, skin bb warm/dry/pink. family at bedside. 03/22 00:15 Reassessment: Patient is alert, oriented x 3, equal unlabored respirations, skin bb warm/dry/pink. pt sitting quietly, awaiting diagnostic results, family at bedside, IV site intact with no erythema or edema noted. 01:33 Reassessment: Patient is alert, oriented x 3, equal unlabored respirations, skin bb warm/dry/pink. pt verbalized understanding of and agrees to plan of care discharge instructions given pt assisted to exit via wheelchair accompanied by family. Vital Signs: 03/21 21:36 BP 103 / 71; Pulse 79; Resp 16; Temp 97.9(TE); Pulse Ox 96% on R/A; Weight 51.71 kg ll3 (R); Height 5 ft. 0 in. (152.40 cm) (R); 03/22 01:32 BP 129 / 76; Pulse 90; Resp 16 S; Temp 98.8(O); Pulse Ox 99% ; bb 03/21 21:36 Body Mass Index 22.26 (51.71 kg, 152.40 cm) ll3 ED Course: 03/21 20:59 Patient arrived in ED. 21:43 Triage completed. ll3 21:43 Arm band placed on. ll3 21:46 Charles Chacon MD is Attending Physician. rn 22:02 Patient has correct armband on for positive identification. Bed in low position. Call ab2 light in reach. Side rails up X2. 22:02 No provider procedures requiring assistance completed. ab2 22:35 Initial lab(s) drawn, by ct, sent to lab. COVID swab sent to lab. Strep swab sent to bb lab. Inserted saline lock: 20 gauge in right antecubital area, using aseptic technique. Blood collected. 22:55 Yeni Reyes, RN is Primary Nurse. bb 22:59 CT Soft Tissue Neck W/contr In Process Unspecified. EDMS 03/22 01:32 IV discontinued, intact, bleeding controlled, No redness/swelling at site. Pressure bb dressing applied. Administered Medications: 00:56 Drug: Augmentin (Amoxicillin-Clavulanate) 875 mg Route: PO; bb 01:32 Follow up: Response: No adverse reaction bb Outcome: 01:19 Discharge ordered by . rn 01:34 Discharged to home via wheelchair, with family. bb 01:34 Condition: stable 01:34 Discharge instructions given to patient, Instructed on discharge instructions, follow up and referral plans. medication usage, Demonstrated understanding of instructions, follow-up care, medications, Prescriptions given X 1. 01:34 Patient left the ED. bb Signatures: Dispatcher [employer] EDSD Yeni Reyes, RN RN Charles Adams MD MD rn Marsh, Wendy Jessica Boyer RN RN 3 Tre Perez ab2
[2021-03-22 01:48] VITALS: BP 129/76; TEMP 98.8; O2SAT 99
== END 2021-03-22 01:34 | disposition home or self-care (01) ==
LOC: ER 20:52
DX: J02.9 Acute pharyngitis, unspecified (principal); J04.0 Acute laryngitis; Z20.822 Contact with and (suspected) exposure to COVID-19
CPT/HCPCS: 87070; 85025; 80048; 36415; 82565; 87081; 0240U; 70491; Q9967; 99284

== ENCOUNTER 2023-12-31 07:43 | Inpatient (IN) | payer OTHER ==
[2023-12-31] MEDS ORDERED: VANCOMYCIN 1 GM/VIAL ONE (08:29)
[2023-12-31] MEDS ORDERED: CEFEPIME 2 GM VIAL ONE (08:29)
[2023-12-31] MEDS ORDERED: MORPHINE 4 MG/ML SYR ONE (08:29)
[2023-12-31] MEDS ORDERED: NA CHLORIDE 0.9% 250 ML ONE (08:29)
[2023-12-31] MEDS ORDERED: ONDANSETRON 4 MG/2 ML VIAL ONE (08:29)
[2023-12-31] MEDS ORDERED: NA CHLORIDE 0.9% 100 ML ONE (08:30)
--- NOTE | 2023-12-31 09:21 | RAD REPORT ---
EXAMINATION: Tib Fib Left CLINICAL INDICATION: Leg pain FINDINGS: No acute fracture seen. Bony density with a sclerotic border adjacent to the medial malleolus appears chronic. A radiopaque foreign body not seen.
[2023-12-31 09:35] LABS: Absolute Basophils 0.1 K/uL (0-0.5); Absolute Eosinophils 0.1 K/uL (0-0.5); Absolute Monocytes 0.8 K/uL (0.1-1.3); Absolute Neutrophil 7.2 K/uL (1.8-8.0); Basophils % 0.5 % (0-1.3); Eosinophils % 1.4 % (0-4.4); Hemoglobin 12.2 g/dL (12.0-15.0); Lymphocytes % 19.7 % (15.3-44.8); MCH 31.4 pg (27.0-35.0); MCV 92.3 fL (80-100); MPV 8.8 fL (7.6-11.3); Monocytes % 7.5 % (3.3-12.3); Neutrophils % 70.9 % (41.7-73.7); Nucleated Red Blood Cells % 0.1 % (0-0); Platelets 255 thou/uL (152-406); RBC Red Blood Cell Count 3.89 M/uL (3.86-4.86); Red Cell Distribution Width 13.6 % (12.1-15.2)
[2023-12-31 09:50] LABS: Albumin 3.1 g/dL (3.4-5.0); Albumin/Globulin Ratio 0.9 (1.1-1.8); Anion Gap 6.7 mEq/L (5.0-15.0); Bilirubin Total 1.4 mg/dL (0.2-1.0); Globulin 3.4 g/dL (2.3-3.5); Potassium 3.7 mEq/L (3.5-5.1); Protein, Total 6.5 g/dL (6.4-8.2)
[2023-12-31 10:08] LABS: PT Prothrombin Time 12.6 SECONDS (9.4-12.5); PTT, Activated Partial Thromb 27.2 SECONDS (24.3-36.9); Protime INR 1.13
--- NOTE | 2023-12-31 10:38 | ER ---
Nurse's Notes [facility] Name: Ronnie Anand Age: 83 yrs Sex: Female : 1940 Arrival Date: 12/31/2023 Time: 07:43 Bed 7 Private MD: Diagnosis: Cellulitis to left lower extremity Presentation: 12/30 08:01 Chief complaint: Patient's son or daughter states: Fell off of porch or Saturday ss and noticed cut to L najera. Attempted to doctor it at home, but has had increased pain and redness to affected area since last night. Coronavirus screen: Client denies travel out of the [place] in the last 14 days. Ebola Screen: Patient denies exposure to infectious person. Patient denies travel to an Ebola-affected area in the 21 days before illness onset. Initial Sepsis Screen: Does the patient meet any 2 criteria? No. Patient's initial sepsis screen is negative. Does the patient have a suspected source of infection? No. Patient's initial sepsis screen is negative. Risk Assessment: Do you want to hurt yourself or someone else? Patient reports no desire to harm self or others. Onset of symptoms was December 27, 2023. 08:01 Method Of Arrival: Ambulatory ss 08:01 Acuity: KE 3 ss Historical: - Allergies: 08:03 No Known Allergies; ss - PMHx: 08:03 Hypercholesterolemia; hyperthyroidism; Myocardial infarction; ss - PSHx: 08:03 Cholecystectomy; hip SX; Tonsillectomy; ss - Immunization history:: Client reports having NOT received the Covid vaccine. - Infectious Disease History:: Denies. - Social history:: Smoking status: Patient denies any tobacco usage or history of. - Family history:: not pertinent. Screenin:56 [facility] ED Fall Risk Assessment (Adult) History of falling in the last 3 months, ph including since admission Yes- single mechanical fall (1 pt) Confusion or Disorientation No (0 pts) Intoxicated or Sedated No (0 pts) Impaired Gait Yes (1 pt) Mobility Assist Device Used Yes (1 pt) Altered Elimination No (0 pt) Score/Fall Risk Level 3 or more points = High Risk Oriented to surroundings, Maintained a safe environment, Hourly rounding (assess needs \T\ fall precautionary measures) done, Used ambulatory aids as needed (educated on \T\ assisted with). Abuse screen: Denies threats or abuse. Denies injuries from another. Nutritional screening: No deficits noted. Tuberculosis screening: No symptoms or risk factors identified. Assessment: 09:00 General: Appears in no apparent distress. Behavior is calm, cooperative. Pain: ph Complains of pain in left najera. Neuro: Level of Consciousness is awake, alert, obeys commands, Oriented to person, place, time, situation. Cardiovascular: Capillary refill < 3 seconds in bilateral fingers. Respiratory: Airway is patent Respiratory effort is even, unlabored. GI: No signs and/or symptoms were reported involving the gastrointestinal system. Derm: Skin is fragile, is thin, Skin is pink, warm \T\ dry. Musculoskeletal: Circulation, motion, and sensation intact. Injury Description: Avulsion sustained to left najera. Vital Signs: 08:01 BP 120 / 58; Pulse 61; Resp 18; Temp 97.8(O); Pulse Ox 100% on R/A; Weight 45.36 kg; ss Height 5 ft. 0 in. ; Pain 6/10; 09:58 BP 106 / 69; Pulse 67; Resp 18; Pulse Ox 100% on R/A; ph 11:30 BP 108 / 54; Pulse 62; Resp 18; Pulse Ox 98% on R/A; ph 13:37 BP 103 / 58; Pulse 58; Resp 18; Temp 97.2; Pulse Ox 98% on R/A; ph 15:00 BP 105 / 64; Pulse 64; Resp 18; Temp 97.2; Pulse Ox 98% on R/A; ph 08:01 Body Mass Index 19.53 (45.36 kg, 152.4 cm) ss 08:01 Pain Scale: Adult ss ED Course: 07:49 Patient arrived in ED. mg5 07:50 Jacky Gutierrez MD is Attending Physician. rt 08:03 Triage completed. ss 08:03 Arm band placed on right wrist. ss 08:18 Nellie Henry, KIMBERLY is Primary Nurse. ph 09:10 Missed attempt(s): 22 gauge in right antecubital area. Bleeding controlled, band aid ph applied, catheter tip intact. 09:15 Tib Fib Left In Process Unspecified. EDMS 09:15 Inserted saline lock: 20 gauge in right antecubital area, using aseptic technique. ph Blood collected. Flushed with 10 mL NS. 09:58 Patient has correct armband on for positive identification. Bed in low position. Call ph light in reach. Side rails up X 1. Pulse ox on. NIBP on. 10:36 Uzair Dias MD is Hospitalizing Provider. rt 11:00 No provider procedures requiring assistance completed. Patient admitted, IV remains in ph place. 11:44 1144 CM met with and her daughter at the bedside. Patient identified by name ane and . Demographic sheet confirmed. Patient states she lives with her daughter in a single story home. Prior to admission, she performs ADLs with assistance from her daughter Basim. DME in the home includes a wheelchair, a forearm crutch, and a shower chair. No HH, no home oxygen, or other medical services at this time. PCP is Dr. Donald Garcia in [place], [place] at [phone]. No MPOA in place. Basim inquired about how to obtain a caregiver. CM provided private pay caregiver list. Preferred plan is for patient to return home upon discharge and Basim sates she will transport patient home. CM team will continue to follow and coordinate care during this hospital stay. Administered Medications: 09:35 Drug: Cefepime IVPB 2 grams IVPB at 200 ml/hr once over 30 mins; (mix in NS 100 mL) ph Route: IVPB; Rate: 200 ml/hr; Infused Over: 30 mins; Site: right antecubital; 10:05 Follow up: Response: No adverse reaction; IV Status: Completed infusion ph 09:57 Drug: morphine IVP or IV 4 mg IVP once over 4 mins Route: IVP; Infused Over: 4 mins; ph Site: right antecubital; 10:30 Follow up: Response: No adverse reaction; Pain is decreased; RASS: Alert and Calm (0) ph 09:57 Drug: Ondansetron IVP 4 mg IVP once; over 2 minutes Route: IVP; Site: right antecubital;ph 10:30 Follow up: Response: No adverse reaction ph 11:17 Drug: vancoMYCIN IVPB 1 grams IVPB once over 2 hrs Route: IVPB; Infused Over: 2 hrs; ph Site: right antecubital; 13:15 Follow up: Response: No adverse reaction; IV Status: Completed infusion ph Medication: 09:57 VIS not applicable for this client. ph Outcome: 10:37 Decision to Hospitalize by Provider. rt 16:00 Instructed on the need for admit, ph 16:10 Patient left the ED. ph 16:16 Admitted to Med/surg accompanied by tech, family with patient, via wheelchair, with ph chart, 16:16 Condition: stable Signatures: Dispatcher [employer] EDMT Lisa Jay RN RN Nellie Henry RN RN Jacky Gutierrez MD MD rt Tarsha Strauss mg5 Deanna Jacobson RN RN ane Corrections: (The following items were deleted from the chart) :57 09:57 Cefepime IVPB 2 grams IVPB at 200 ml/hr in right antecubital over 30 mins ph ph
--- NOTE | 2023-12-31 10:38 | EDPHYS ---
Physician Documentation [facility] Name: Ronnie Anand Age: 83 yrs Sex: Female : 1940 Arrival Date: 12/31/2023 Time: 07:43 Bed 7 Private MD: ED Physician Jacky Gutierrez HPI: 12/30 10:01 This 83 yrs old Female presents to ER via Ambulatory with complaints of Fall Injury, rt Leg Pain. 10:01 Patient presents to the ED with concern for infection to the left leg. About 2 days rt ago, the patient fell scraping her left najera, states that they tried to do local care at that time. States that today, became red, swollen, painful. Reports a scant amount purulent drainage. Denies of acute complaints, symptoms are moderate severity, no other aggravating or alleviating factors.. Historical: - Allergies: 08:03 No Known Allergies; ss - PMHx: 08:03 Hypercholesterolemia; hyperthyroidism; Myocardial infarction; ss - PSHx: 08:03 Cholecystectomy; hip SX; Tonsillectomy; ss - Immunization history:: Client reports having NOT received the Covid vaccine. - Infectious Disease History:: Denies. - Social history:: Smoking status: Patient denies any tobacco usage or history of. - Family history:: not pertinent. ROS: 10:01 Constitutional: Negative for fever, chills, and weight loss, Cardiovascular: Negative rt for chest pain, palpitations, and edema, Respiratory: Negative for shortness of breath, cough, wheezing, and pleuritic chest pain, Abdomen/GI: Negative for abdominal pain, nausea, vomiting, diarrhea, and constipation, Neuro: Negative for headache, weakness, numbness, tingling, and seizure, 10:01 MS/extremity: Positive for pain, swelling, 10:01 Skin: Positive for Wound, cellulitis, Exam: 10:01 ECG was reviewed by the Attending Physician. rt 10:01 Musculoskeletal/extremity: Skin tear with large amount of surrounding erythema to the left najera, swelling noted, pulses, motor, sensation are intact. Vital Signs: 08:01 BP 120 / 58; Pulse 61; Resp 18; Temp 97.8(O); Pulse Ox 100% on R/A; Weight 45.36 kg; ss Height 5 ft. 0 in. ; Pain 6/10; 09:58 BP 106 / 69; Pulse 67; Resp 18; Pulse Ox 100% on R/A; ph 11:30 BP 108 / 54; Pulse 62; Resp 18; Pulse Ox 98% on R/A; ph 13:37 BP 103 / 58; Pulse 58; Resp 18; Temp 97.2; Pulse Ox 98% on R/A; ph 15:00 BP 105 / 64; Pulse 64; Resp 18; Temp 97.2; Pulse Ox 98% on R/A; ph 08:01 Body Mass Index 19.53 (45.36 kg, 152.4 cm) ss 08:01 Pain Scale: Adult ss MDM: 08:10 Medical Screening Exam initiated rt 17:27 Differential diagnosis: Cellulitis, skin tear. Data reviewed: vital signs, nurses rt notes, lab test result(s), radiologic studies. Consideration of Admission/Observation Patient was admitted/placed on observation. Management of patient was discussed with the following: Hospitalist: Agrees to admit. Independent interpretation of the following test(s) in the Emergency Department X-Ray: My interpretation is No subcutaneous gas seen on interpretation of x-ray images. Counseling: I had a detailed discussion with the patient and/or guardian regarding the historical points, exam findings, and any diagnostic results supporting the discharge/admit diagnosis, lab results, radiology results, the need for further work-up and treatment in the hospital. Response to treatment: There is no appreciated change of the patient's symptoms at this time. 12/30 09:30 Order name: Comprehensive Metabolic Panel; Complete Time: 10: EDID 12/30 09:30 Order name: Lactate w/ 2H reflex if indic.; Complete Time: 10: EDID 12/30 09:30 Order name: CBC with Automated Diff; Complete Time: 10: EDID 12/30 09:30 Order name: Protime (+INR); Complete Time: 10:19 EDID 12/30 09:30 Order name: PTT, Activated Partial Thromb; Complete Time: 10:19 EDID 12/30 09:30 Order name: Blood Culture EDID 12/30 09:30 Order name: Blood Culture EDID 12/30 08:51 Order name: Tib Fib Left; Complete Time: 10:01 EDID 12/30 10:11 Order name: EKG Electrocardiogram EDID 12/30 08:17 Order name: Accucheck; Complete Time: 09:23 rt 12/30 08:17 Order name: Cardiac monitoring; Complete Time: rt 12/30 08:17 Order name: EKG - Nurse/Tech; Complete Time: rt 12/30 08:17 Order name: IV Saline Lock - Large Bore; Complete Time: 24 rt 12/30 08:17 Order name: Labs collected and sent; Complete Time: rt 12/30 08:17 Order name: O2 Per Protocol; Complete Time: rt 12/30 08:17 Order name: O2 Sat Monitoring; Complete Time: rt 12/30 08:17 Order name: Vital Signs; Complete Time: rt EC:01 Rate is 52 beats/min. Rhythm is regular, Sinus bradycardia with No ectopy. Left axis rt deviation noted. NH interval is normal. QRS interval is normal. QT interval is normal. No Q waves. T waves are Normal. No ST changes noted. Interpreted by me. Administered Medications: 09:35 Drug: Cefepime IVPB 2 grams IVPB at 200 ml/hr once over 30 mins; (mix in NS 100 mL) ph Route: IVPB; Rate: 200 ml/hr; Infused Over: 30 mins; Site: right antecubital; 10:05 Follow up: Response: No adverse reaction; IV Status: Completed infusion ph 09:57 Drug: morphine IVP or IV 4 mg IVP once over 4 mins Route: IVP; Infused Over: 4 mins; ph Site: right antecubital; 10:30 Follow up: Response: No adverse reaction; Pain is decreased; RASS: Alert and Calm (0) ph 09:57 Drug: Ondansetron IVP 4 mg IVP once; over 2 minutes Route: IVP; Site: right antecubital;ph 10:30 Follow up: Response: No adverse reaction ph 11:17 Drug: vancoMYCIN IVPB 1 grams IVPB once over 2 hrs Route: IVPB; Infused Over: 2 hrs; ph Site: right antecubital; 13:15 Follow up: Response: No adverse reaction; IV Status: Completed infusion ph Disposition Summary: 12/31/23 10:37 Hospitalization Ordered Notes: Hospitalization Status: Inpatient Admission rt Provider: Uzair Dias rt Location: Telemetry/[facility] (Inpatient) rt Condition: Stable rt Problem: new rt Symptoms: are unchanged rt Bed/Room Type: Standard rt Room Assignment: 210(12/31/23 14:27) ss Diagnosis - Cellulitis to left lower extremity rt Forms: - Medication Reconciliation Form rt - SBAR form rt - Leadership Thank You Letter rt Signatures: Dispatcher [employer] EDMS Lisa Jay, KIMBERLY RN ss Nellie Henry RN RN Jacky Gutierrez MD MD rt Zina Bose bc6 Corrections: (The following items were deleted from the chart) 10:52 10:52 Tib Fib Left+RAD.RAD.BRZ ordered. EDMS EDMS 11:37 10:52 CBC+H.LAB.BRZ ordered. EDMS EDMS 11:37 10:52 COMPREHENSIVE METABOLIC PANEL+C.LAB.BRZ ordered. EDMS EDMS 11:37 10:52 LACTATE+C.LAB.BRZ ordered. EDMS EDMS 11:38 10:52 BLOOD CULTURE*+BA.LAB.BRZ ordered. EDMS EDMS 11:38 10:52 PROTIME (+INR)+COAG.LAB.BRZ ordered. EDMS EDMS 11:38 10:52 PTT, ACTIVATED+COAG.LAB.BRZ ordered. EDMS EDMS 13:17 10:37 rt bc6 14:08 13:17 220 bc6 bc6 14:27 14:08 bc6 ss
--- NOTE | 2023-12-31 12:15 | EKG ---
Test Date: 2023-12-31 Test Time: 08:43:48 [employer] Mixer: TOM Parisi MEASUREMENT RESULTS: Intervals: Rate: 52 [place]: 154 QRSD: 92 QT: 452 QTc: 420 Aroda: P: 32 [place]: 154 QRS: -26 T: 0 INTERPRETIVE STATEMENTS: Sinus bradycardia Moderate voltage criteria for LVH, may be normal variant Borderline ECG Compared to ECG 11/24/2020 00:32:46 Left ventricular hypertrophy now present Sinus rhythm no longer present Electronically Signed On 12-31-23 12:15:17 SWING DRIVER by Saul Tejeda
[2023-12-31] MEDS ORDERED: ZOLPIDEM TARTRATE 5 MG TABLET PO PRN (13:01)
[2023-12-31] MEDS ORDERED: ONDANSETRON 4 MG/2 ML VIAL IV PRN (13:01)
[2023-12-31] MEDS ORDERED: ACETAMINOPHEN 325 MG TABLET PO PRN (13:01)
[2023-12-31] MEDS ORDERED: ALBUTEROL 2.5 MG/3 ML NEB SOL NEB PRN (13:01)
--- NOTE | 2023-12-31 13:28 | P.HP ---
Certification for Inpatient Patient admitted to: Inpatient With expected LOS: >2 Midnights Patient will require the following post-hospital care: Home Health Services Practitioner: I am a practitioner with admitting privileges, knowledge of patient current condition, hospital course, and medical plan of care. Services: Services provided to patient in accordance with Admission requirements found in Title 42 Section 412.3 of the Code of Federal Regulations Patient History Date of Service: 12/31/23 History of Present Illness: This is a [id number]-year-old female patient with past medical history notable for myocardial infarction, hypercholesterolemia, hypothyroidism who was brought to emergency room for worsening wound of the left lower extremity. Her daughter reported that she fell off a porch 3 or 4 days ago, last or Saturday had a cut to left najera area, try to see a physician but have not seen any physician or taken any medication including antibiotics. She noticed the patient's pain and redness around the open wounds of the left lower extremity worsening therefore she brought her mother to the hospital this morning. Patient denied any fever or chills or rigor, no purulent discharge but intermittent serous sanguinous discharge reported. Her vital signs were stable, afebrile, normotensive, mild bradycardia with heart rate 50 to 60/min upon arrival at emergency room, blood test significant for mild leukocytosis of 14.1, no bands, normal electrolyte, random blood sugar 101, normal renal function test and liver function test and coagulation except a mild elevation of total bilirubin at 1.4 and hypoalbuminemia at 3.1, Twelve-lead EKG shows sinus bradycardia with a heart rate of 52, LVH without strain by voltage criteria, prescription for x-ray of the left lower extremity shows no fracture of the left tibia. she was started on normal saline at 100 mL/h, started on cefepime 2 g, IV vancomycin 1 g around 9 AM this morning, 4 mg morphine IV x 1, 4 mg ondansetron IV x 1 were administered Allergies No Known Allergies Allergy (Unverified 05/30/11 17:36) Home medications list reviewed: Yes Home Medications: Levothyroxine Sodium [Synthroid] 1 tab PO DAILY 05/31/11 Pitavastatin Calcium [Livalo] 4 mg PO DAILY 05/31/11 Clopidogrel Bisulfate [Plavix] 75 mg PO DAILY #0 tablet 06/02/11 Aspirin [Aspirin EC 81 MG] 1 tab PO DAILY 05/19/13 Carvedilol [Coreg] 1 tab PO BID 05/19/13 Gabapentin [Neurontin*] 400 mg PO Q6HR 05/19/13 Isosorbide Mononitrate [Isosorbide Mononitrate ER] 1 tab PO DAILY 05/19/13 Baclofen [Lioresal*] 10 mg PO BID #60 tab 06/03/13 Iron/FA/Vit B-Com W/C [Hemocyte Plus*] 1 tab PO BIDWM #60 tab 06/03/13 levoFLOXacin [Levaquin*] 500 mg PO DAILY #7 tab 06/03/13 - Past Medical/Surgical History Diabetic: No -: OSTEOPOROSIS -: SIGNIFICANT HX OF PA -: HYPERLIPIDEMIA -: HTN -: CHOLECYSTECTOMY -: APPENDECTOMY -: OVARY REMOVED -: - Social History Alcohol use: No CD- Drugs: No Caffeine use: Yes Review of Systems 10-point ROS is otherwise unremarkable Physical Examination - Physical Exam General: Alert, In no apparent distress, Oriented x3 HEENT: Atraumatic, EOMI Neck: Supple, Without JVD or thyroid abnormality Respiratory: Clear to auscultation bilaterally, Normal air movement, Diminished, Crackles/rales Cardiovascular: No edema, Regular rate/rhythm Gastrointestinal: Normal bowel sounds, Soft and benign, No ascites, No tenderness, No masses Musculoskeletal: No clubbing, No swelling Integumentary: No rashes Lymphatics: No axilla or inguinal lymphadenopathy Other Physical/Emotional Findings: Emaciated, fragile old lady, no acute distress, no lethargic,. Her vital signs are normal, her blood pressure 120/58, heart rate 61, respirate 18, body temperature 97.8, 100% oxygen saturation on room air. A 10 cm x 2 cm ulcer in the left najera, well-demarcated, clean base, no bleeding or purulent discharge, erythema and tenderness around edge of the ulcer, warm and dry, good palpable dorsalis pedis of both lower extremity - Studies Laboratory Data (last 24 hrs) 12/31/23 12/31/23 12/31/23 09:15 09:15 09:15 WBC 10.10 Hgb 12.2 Hct 36.0 Plt Count 255 PT 12.6 H INR 1.13 APTT 27.2 Sodium 138 Potassium 3.7 BUN 15 Creatinine 0.63 Glucose 101 Total Bilirubin 1.4 H AST 15 ALT 19 Alkaline Phosphatase 58 12/31/23 12/31/23 12/31/23 08:17 08:17 08:17 WBC Cancelled Hgb Cancelled Hct Cancelled Plt Count Cancelled PT Cancelled INR Cancelled APTT Cancelled Sodium Cancelled Potassium Cancelled BUN Cancelled Creatinine Cancelled Glucose Cancelled Total Bilirubin Cancelled AST Cancelled ALT Cancelled Alkaline Phosphatase Cancelled Microbiology Data (last 24 hrs): A blood culture was taken before start empiric antibiotics Assessment and Plan - Plan 83 years old female patient with a past medical history notable for old PA, hyperlipidemia, hypothyroidism who suffered a fall 3 days ago and had a cut to the left najera presented to emergency room for worsening pain and redness of ope n wound of the left najera, she did not receive any antibiotics but self wound care at home #1 nonpurulent cellulitis of the lower lower extremity related to #2, no sign of sepsis I will downgrade antibiotics to cefazolin 1 g every 8 hour as patient has no risk of multidrug-resistant organism, no recent hospitalization or IV antibiotics Will follow-up blood culture result and mild leukocytosis #2 traumatic open wound of the left lower extremity Local wound care, will order consult wound care , not a candidate for suture since injury was 3 days ago Pain control with acetaminophen as needed, 2 mg IV morphine as needed #3 asymptomatic bradycardia on carvedilol with history of old PA Will decrease the carvedilol dose to 6.25 from 12.5, continue aspirin 81 mg, atorvastatin 40 mg once a day DVT prophylaxis; enoxaparin subcu Disposition; plan to discharge home 1 to 2 days on oral antibiotics with home health for wound care - Advance Directives Does patient have a Living Will: Yes Does patient have a Durable POA for Healthcare: No
[2023-12-31] MEDS: ASPIRIN EC 81 MG TAB PO SCH (14:00)
--- NOTE | 2023-12-31 17:48 | P.HP ---
Date of Service: 12/31/23 Patient seen and evaluated by Dr. Keith. She will continue following patient starting tomorrow.
[2023-12-31 17:54] VITALS: BMI 19.5
[2023-12-31] MEDS: D5.45NS W/KCL 20MEQ 1,000 ML IV SCH (18:32)
[2023-12-31] MEDS: CEFAZOLIN 1 GM in NA CHLORIDE 0.9% 50 ML IVPB SCH (18:32)
[2023-12-31] MEDS: MORPHINE 2 MG/ML SYR IV PRN (18:36)
[2023-12-31] MEDS: ATORVASTATIN 20 MG TAB PO SCH (21:49)
[2023-12-31] MEDS: carvediloL 6.25 MG TAB PO SCH (21:49)
[2024-01-01] MEDS: LEVOTHYROXINE SOD 0.125 MG TAB PO SCH (05:49)
[2024-01-01 06:12] LABS: Absolute Basophils 0.1 K/uL (0-0.5); Absolute Eosinophils 0.2 K/uL (0-0.5); Absolute Lymphocytes (CBC) 1.9 K/uL (0.7-4.9); Absolute Monocytes 0.8 K/uL (0.1-1.3); Absolute Neutrophil 6.4 K/uL (1.8-8.0); Basophils % 0.6 % (0-1.3); Eosinophils % 2.2 % (0-4.4); Hematocrit 36.4 % (36.0-45.0); Hemoglobin 12.1 g/dL (12.0-15.0); Lymphocytes % 20.5 % (15.3-44.8); MCH 31.2 pg (27.0-35.0); MCHC 33.3 g/dL (32.0-36.0); MCV 93.7 fL (80-100); MPV 9.4 fL (7.6-11.3); Monocytes % 8.8 % (3.3-12.3); Neutrophils % 67.9 % (41.7-73.7); Platelets 266 thou/uL (152-406); RBC Red Blood Cell Count 3.89 M/uL (3.86-4.86); Red Cell Distribution Width 13.9 % (12.1-15.2)
[2024-01-01 06:33] LABS: Anion Gap 6.2 mEq/L (5.0-15.0); Potassium 4.2 mEq/L (3.5-5.1)
[2024-01-01] MEDS: ASPIRIN EC 81 MG TAB PO SCH (08:06)
[2024-01-01] MEDS: ENOXAPARIN 40 MG/0.4 ML SQ SCH (08:06)
[2024-01-01] MEDS: ISOSORBIDE MONO SR 30 MG TAB PO SCH (08:07)
--- NOTE | 2024-01-01 09:58 | P.PN ---
Subjective Date of Service: 01/01/24 Chief Complaint: Infected open wound of the left najera after fall Subjective: Improving No overnight events, patient states that her leg pain has improved, slept well, tolerating oral diet without any nausea and vomiting or abdominal pain, nurse reported mild confusion after IV morphine 2 mg as needed, she cannot provide her pain medication at home because she is a poor historian, awaiting evaluation by wound care nurse Review of Systems Other: Consitutional; fever(-), chills (-), rigor(-), night sweat(-), unintentional weight loss(-) HEENT; epistaxis (-), otorrhea (-), otalgia (-) Respiratory; shortness of breath (-), wheezing (-), cough (-), sputum (-), pleuritic chest pain (-) Cardiovascular; chest pain (-), peripheral edema (-), paroxysmal nocturnal dyspnea (-), orthopnea (-) Gastrointestinal; nausea (-), vomiting (-), abdominal pain (-), diarrhea (-), constipation (-), melena (-), hematochezia (-) Skin; rash (-), pruritus (-), REVENUE LIAISON; headache (-), paresthesia (-), numbness (-), paralysis (-), tremor (-), ataxia (-), dysphagia (-), dysarthria (-), diplopia (-) Physical Examination - Vital Signs Temperature: 98.1 F Blood Pressure: 141/59 Pulse: 59 Respirations: 14 Pulse Ox (%): 99 - Physical Exam Other Physical/Emotional Findings: Emaciated, fragile old lady, no acute distress, no acute ill looking,. Dressing in the left lower extremity, no bleeding or discharge noted on dressing, good palpable dorsalis pedis in the left lower extremity, mild pedal edema - Studies Laboratory Data (last 24 hrs) 12/31/23 12/31/23 12/31/23 09:15 08:17 08:17 WBC Hgb Hct Plt Count PT 12.6 H Cancelled INR 1.13 Cancelled APTT 27.2 Cancelled Sodium Cancelled Potassium Cancelled BUN Cancelled Creatinine Cancelled Glucose Cancelled Total Bilirubin Cancelled AST Cancelled ALT Cancelled Alkaline Phosphatase Cancelled 12/31/23 08:17 WBC Cancelled Hgb Cancelled Hct Cancelled Plt Count Cancelled PT INR APTT Sodium Potassium BUN Creatinine Glucose Total Bilirubin AST ALT Alkaline Phosphatase Assessment And Plan - Plan 83 years old female patient with a past medical history notable for old PR, hyperlipidemia, hypothyroidism who suffered a fall 3 days ago and had a cut to the left najera presented to emergency room for worsening pain and redness of open wound of the left najera, she did not receive any antibiotics but self wound care at home #1 nonpurulent cellulitis of the lower lower extremity related to #2, no sign of sepsis Stable, mild leukocytosis resolved, blood culture preliminary report no growth to date Will continue cefazolin 1 g every 8 hour as patient has no risk of multidrug-resistant organism, no recent hospitalization or IV antibiotics #2 traumatic open wound of the left lower extremity Local wound care, not a candidate for suture since injury was 4 days ago Will add Tylenol 3 for moderate pain control in addition to acetaminophen, 2 mg IV morphine as needed Awaiting evaluation and wound care instruction by wound care nurse #3 asymptomatic bradycardia on carvedilol with history of old PR No chest pain, stable, her resting heart rate in 60s, normotensive, Will continue carvedilol dose 6.25 twice daily, continue aspirin 81 mg, atorvastatin 40 mg once a day DVT prophylaxis; enoxaparin subcu Disposition; plan to discharge home 1 to 2 days on oral antibiotics with home health for wound care
[2024-01-01] MEDS: CODEINE 30MG/APAP 300MG TAB PO PRN (21:27)
[2024-01-02 04:47] LABS: Absolute Eosinophils 0.2 K/uL (0-0.5); Absolute Lymphocytes (CBC) 2.4 K/uL (0.7-4.9); Absolute Monocytes 0.6 K/uL (0.1-1.3); Absolute Neutrophil 4.6 K/uL (1.8-8.0); Basophils % 0.5 % (0-1.3); Eosinophils % 2.7 % (0-4.4); Hemoglobin 11.6 g/dL (12.0-15.0); Lymphocytes % 29.9 % (15.3-44.8); MCH 31.1 pg (27.0-35.0); MCHC 33.3 g/dL (32.0-36.0); MCV 93.4 fL (80-100); MPV 9.3 fL (7.6-11.3); Neutrophils % 58.9 % (41.7-73.7); Platelets 242 thou/uL (152-406); RBC Red Blood Cell Count 3.75 M/uL (3.86-4.86)
--- NOTE | 2024-01-02 08:44 | P.CNS ---
Date of Consult: 01/02/24 Reason for consult: Nonhealing left leg wound History of present illness: Patient is a 83-year-old female presented to the hospital with 3 to 4-day history of nonhealing wound on her left anterior leg secondary to a fall. She is complaining of pain. There is no evidence of fever, chills or purulent discharge. Patient is a poor historian. Review of systems: Otherwise unremarkable Past medical history: Coronary artery disease, hypertension, hypercholesterolemia Past surgical history: Coronary stent placement, , ovarian resection, appendectomy and cholecystectomy Allergies: None Social history: Patient denies smoking or drinking alcohol but states that her was a heavy smoker Family history: Noncontributory Vital signs: Stable, afebrile Physical exam: Awake and alert Head and neck exam: No masses Chest: Clear Heart: S1-S2 Abdomen: Soft Extremity: Diminished dorsalis pedis and posterior tibial pulses and delayed capillary refill. There is a wound with moderate amount of fibrin and some necrotic tissue present in the lower left leg size is approximately 9.2 x 4.5 x 0.2 cm there is minimal surrounding erythema and warmth but no purulent discharge. Neuro: Nonfocal Diagnostic data: Reviewed Assessment: Infected wound left lower leg with probable peripheral vascular disease Plan/recommendation: Antibiotics as ordered, surgical debridement. Patient understands risks, benefits and alternatives and agrees to procedure. We will evaluate her vascular status as an outpatient. CC:
[2024-01-02] MEDS ORDERED: LIDOCAINE 2% MPF 5 ML VIAL ONE (08:53)
[2024-01-02] MEDS ORDERED: FENTANYL CITR 100 MCG/2 ML ONE (08:53)
[2024-01-02] MEDS ORDERED: propofoL 200 MG/20 ML VIAL IV ONE ×2 (08:53→10:15)
[2024-01-02] MEDS ORDERED: ONDANSETRON 4 MG/2 ML VIAL ONE (08:53)
[2024-01-02] MEDS: Ringers Lactate 1,000 ML IV ONE (09:00)
[2024-01-02] MEDS: COLLAGENASE 30 GM OINTMENT TOP SCH (09:00)
[2024-01-02] MEDS: MUPIROCIN 2% OINT 22GM TUBE TOP SCH (09:00)
[2024-01-02] MEDS: FENTANYL CITR 100 MCG/2 ML ONE (09:10)
[2024-01-02] MEDS ORDERED: Phenylephrine HCl 10 MG/ML 1 ML VIAL ONE (10:07)
[2024-01-02] MEDS ORDERED: NS 0.9% VIAL 10 ML ONE (10:07)
[2024-01-02] MEDS: COLLAGENASE 30 GM OINTMENT TOP ONE (10:23)
--- NOTE | 2024-01-02 10:45 | P.OP ---
Date of Service: 01/02/24 Preop diagnosis: Nonhealing left leg wound Postop diagnosis: Same Procedure performed: Debridement left leg wound to subcutaneous tissue approximately 10 x 5 cm Surgeon: Rod Azar MD [employer] Correspondent: None Estimated blood loss: Minimal Specimen: Tissue for culture and debridement tissue Findings: As above Anesthesia: General Complications: None Drains: None Fluids and blood products: Nonapplicable Disposition: Recovery room Operative note: Patient brought to the OR and placed in supine position. General anesthesia began. Patient prepped and draped in usual sterile fashion. Marcaine 0.5% infiltrated locally for postop pain control. Then, curette and scissors used to debride necrotic fibrin as well as eschar down to the subcutaneous tissue. The entire wound was irrigated and bleeding controlled with cautery. The approximate area of debridement was 10 x 5 cm and the depth was approximately 0.5 cm. After debridement, Santyl dressing was applied. Patient was awakened and taken to recovery room in good general condition. CC:
--- NOTE | 2024-01-02 13:12 | P.PN ---
Subjective Date of Service: 01/02/24 Chief Complaint: Infected open wound of the left najera after fall Patient was seen by wound care nurse and general surgery yesterday. She came back from surgical debridement of the left lower extremity wound, chronic venous status ulcer with recent traumatic laceration. She is complaining of moderate pain at operation site but denied any numbness and weakness or bleeding. Review of Systems Other: Consitutional; fever(-), chills (-), rigor(-), night sweat(-), unintentional weight loss(-) HEENT; epistaxis (-), otorrhea (-), otalgia (-) Respiratory; shortness of breath (-), wheezing (-), cough (-), sputum (-), pleuritic chest pain (-) Cardiovascular; chest pain (-), peripheral edema (-), paroxysmal nocturnal dyspnea (-), orthopnea (-) Gastrointestinal; nausea (-), vomiting (-), abdominal pain (-), diarrhea (-), constipation (-), melena (-), hematochezia (-) Urinary; urinary frequency (-), dysuria (-), urgency (-), flank pain (-), gross hematuria (-) Skin; rash (-), pruritus (-) Musculoskeletal; left leg pain (+), numbness(-), weakness(-) Physical Examination - Vital Signs Temperature: 97.5 F Blood Pressure: 140/65 Pulse: 53 Respirations: 12 Pulse Ox (%): 99 - Physical Exam Other Physical/Emotional Findings: - Physical Exam. General: Chronic ill looking, in no apparent distress,. HEENT: Normocephalic, atraumatic,. Neck: Supple, without JVD or goiter or thyroid mass. Respiratory: Normal breathing effort, clear to auscultation bilaterally, no crackles no wheezing or rhonchi. Cardiovascular: Regular rate and rhythm, S1, S2 normal, no murmur no gallop. Gastrointestinal: Normal bowel sounds, nondistended, nontender, No ascites, , No masses, no hepatosplenomegaly. Musculoskeletal: No clubbing, No peripheral edema, left lower extremity in elastic dressing, no bleeding or discharge on the dressing, good perfusion to the left toes, no sign of cyanosis or neurovascular impairment. Integumentary: No rashes. Lymphatics: No axilla or cervical lymphadenopathy. Neurology; alert awake oriented x3, no focal neurologic deficit Assessment And Plan - Plan 83 years old female patient with a past medical history notable for old PA, hyperlipidemia, hypothyroidism who suffered a fall 3 days ago and had a cut to the left najera presented to emergency room for worsening pain and redness of open wound of the left najera, she did not receive any antibiotics but self wound care at home #1 nonpurulent cellulitis of the lower lower extremity related to #2, no sign of sepsis Stable, mild leukocytosis has resolved, blood culture preliminary report no growth to date Will continue cefazolin 1 g every 8 hour as patient has no risk of multidrug-resistant organism, no recent hospitalization or IV antibiotics #2 traumatic open wound combined with chronic venous status ulcer of the left lower extremity Underwent surgical debridement in OR today, case discussed with the surgical technology instructor, Dr. Rod Azar, successful surgical debridement with wound culture Pain control with Tylenol 3 in addition to acetaminophen, 2 mg IV morphine as needed Continues local wound care instructed by general surgeon and wound care nurse #3 asymptomatic bradycardia on carvedilol with history of old PA No chest pain, stable vital signs, her resting heart rate in 60s, normotensive, Will continue carvedilol dose 6.25 twice daily, continue aspirin 81 mg, atorvastatin 40 mg once a day DVT prophylaxis; enoxaparin subcu Disposition; plan to discharge home 1 to 2 days on oral antibiotics with home health for wound care tomorrow. Will follow-up with Dr. Rod Azar at wound care center after discharge for operative wound culture result
[2024-01-02] MEDS: JUVEN PACKET PO SCH (21:07)
[2024-01-02] MEDS: HYDROCODONE/APAP 7.5/325 MG TAB PO PRN (23:03)
[2024-01-03 05:40] VITALS: O2SAT 95
[2024-01-03] MEDS: ASCORBIC ACID 500 MG TABLET PO SCH (08:47)
[2024-01-03] MEDS: ZINC SULFATE 220 MG CAP PO SCH (08:47)
--- NOTE | 2024-01-03 10:17 | P.DS ---
Admission Date: 12/31/23 Discharge Date: 01/03/24 Disposition: DC HOME/HOME HEALTH CARE Discharge Condition: GOOD Reason for Admission: Infected open wound of the left najera after fall Brief History of Present Illness: This is a [id number]-year-old female patient with past medical history notable for myocardial infarction, hypercholesterolemia, hypothyroidism who was brought to emergency room for worsening wound of the left lower extremity. Her daughter reported that she fell off a porch 3 or 4 days ago, last or Saturday had a cut to left najera area, tried to see a physician but have not seen any physician or taken any medication including antibiotics. She noticed the patient's pain and redness around the open wounds of the left lower extremity worsening therefore she brought her mother to the hospital. Patient denied any fever or chills or rigor, no purulent discharge but intermittent serous sanguinous discharge reported. Hospital Course: She was doing very well during hospitalization without any events. She was started on IV cefazolin, her pain was managed with with IV morphine and [place]. Her leg wound was managed by wound care nurse and general surgery. She underwent surgical debridement of her wound on January 01, preliminary wound culture was no growth at the time of discharge. She will be sent home with oral home health for wound care and cefadroxil for 5 days. She is to follow-up with general surgeon at wound care center after discharge. 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 Rod Azar, successful surgical debridement with wound culture Pain control with [place] 7.5/325 in addition to acetaminophen, 2 mg IV morphine as needed #3 asymptomatic bradycardia on carvedilol with history of old MN and hypertension No chest pain, no adverse cardiac event during hospitalization, carvedilol was dose decreased to 6.25, her heart rate over 50s and systolic blood pressure over 110 on decreased dose Vital Signs/Physical Exam: Temp Pulse Resp BP Pulse Ox 97.3 F 62 16 108/67 98 01/03/24 08:00 01/03/24 08:00 01/03/24 08:00 01/03/24 08:00 01/03/24 08:00 Other Physical/Emotional Findings: - Physical Exam. General: Chronic ill looking, in no apparent distress,. HEENT: Normocephalic, atraumatic,. Neck: Supple, without JVD or goiter or thyroid mass. Respiratory: Normal breathing effort, clear to auscultation bilaterally, no crackles no wheezing or rhonchi. Cardiovascular: Regular rate and rhythm, S1, S2 normal, no murmur no gallop. Gastrointestinal: Normal bowel sounds, nondistended, nontender, No ascites, , No masses, no hepatosplenomegaly. Musculoskeletal: No clubbing, No peripheral edema, left lower extremity in elastic dressing, no bleeding or discharge on the dressing, good perfusion to the left toes, no sign of cyanosis or neurovascular impairment. Integumentary: No rashes. Lymphatics: No axilla or cervical lymphadenopathy. Neurology; alert awake oriented x3, no focal neurologic deficit Laboratory Data at Discharge: WBC 7.90 thou/uL (4.3-10.9) 01/02/24 04:26 Hgb 11.6 g/dL (12.0-15.0) L 01/02/24 04:26 Hct 35.0 % (36.0-45.0) L 01/02/24 04:26 Plt Count 242 thou/uL (152-406) 01/02/24 04:26 PT 12.6 SECONDS (9.4-12.5) H 12/31/23 09:15 INR 1.13 12/31/23 09:15 APTT 27.2 SECONDS (24.3-36.9) 12/31/23 09:15 Sodium 139 mEq/L (136-145) 01/02/24 04:26 Potassium 4.0 mEq/L (3.5-5.1) 01/02/24 04:26 BUN 11 mg/dL (7-18) 01/02/24 04:26 Creatinine 0.59 mg/dL (0.55-1.02) 01/02/24 04:26 Glucose 102 mg/dL (74-106) 01/02/24 04:26 Total Bilirubin 1.4 mg/dL (0.2-1.0) H 12/31/23 09:15 AST 15 U/L (15-37) 12/31/23 09:15 ALT 19 U/L (13-56) 12/31/23 09:15 Alkaline Phosphatase 58 U/L (45-117) 12/31/23 09:15 Home Medications: Levothyroxine Sodium [Synthroid] 1 tab PO DAILY 05/31/11 Aspirin [Aspirin EC 81 MG] 1 tab PO DAILY 05/19/13 Gabapentin [Neurontin*] 400 mg PO BID 05/19/13 Isosorbide Mononitrate [Isosorbide Mononitrate ER] 1 tab PO DAILY 05/19/13 Iron/FA/Vit B-Com W/C [Hemocyte Plus*] 1 tab PO BIDWM #60 tab 06/03/13 Cefadroxil Hydrate [Duricef] 500 mg PO BID 5 Days 01/03/24 Hydrocodone 7.5/APAP 325 [[place] 7.5/325 mg*] 1 tab PO Q6H PRN #15 tab 01/03/24 carvediloL [Coreg*] 6.25 mg PO BID #30 tab 01/03/24 New Medications: carvediloL [Coreg*] 6.25 mg PO BID #30 tab Cefadroxil Hydrate [Duricef] 500 mg PO BID 5 Days Hydrocodone 7.5/APAP 325 [[place] 7.5/325 mg*] 1 tab PO Q6H PRN #15 tab PRN Reason: Pain Scale 8-10 (Severe) Physician Discharge Instructions: [facility] [phone] fax [phone] Followup: Miguel ROBINOT [Primary Care Provider] - Rod Azar MD [ACTIVE - CAN ADMIT] - ([facility] - [phone])
[2024-01-03 17:16] VITALS: BP 105/60; TEMP 98.8
[2024-01-03] MEDS ORDERED: CEFAZOLIN SODIUM 1 GM/VIAL ONE (17:43)
== END 2024-01-03 18:13 | disposition home health service (06) | DRG 264 ==
LOC: ER 07:43 → ERHOLD 12:15 → 2ND 14:01
PROVIDERS: ADMIT Internal Medicine; ATTEND Internal Medicine
PROC: 0JBP0ZZ Excision of Left Lower Leg Subcutaneous Tissue and Fascia, Open Approach (ICD-10-PCS; principal; 2024-01-02 09:30)
DX: I96 Gangrene, not elsewhere classified (principal); L03.116 Cellulitis of left lower limb; L97.829 Non-pressure chronic ulcer of other part of left lower leg with unspecified severity; I10 Essential (primary) hypertension; E03.9 Hypothyroidism, unspecified; M81.0 Age-related osteoporosis without current pathological fracture; E78.00 Pure hypercholesterolemia, unspecified; E88.09 Other disorders of plasma-protein metabolism, not elsewhere classified; I25.2 Old myocardial infarction; I25.10 Atherosclerotic heart disease of native coronary artery without angina pectoris; R00.1 Bradycardia, unspecified; Z90.49 Acquired absence of other specified parts of digestive tract; Z28.310 Unvaccinated for COVID-19; Z79.890 Hormone replacement therapy; Z79.82 Long term (current) use of aspirin; Z79.899 Other long term (current) drug therapy; Z79.02 Long term (current) use of antithrombotics/antiplatelets; Z95.5 Presence of coronary angioplasty implant and graft
CPT/HCPCS: 36415; 80048; 80053; 83605; 85025; 85610; 85730; 87040; 87070; 87176; 87205; 88304; 93005; 94760; 96365; 96367; 96375; 99285; A4216; J0690; J0692; J1650; J2003; J2270; J2371; J2405; J2704; J3010; J3590; J7050; J7120